=== PATIENT | male | born 1945 | race Caucasian/White ===

== ENCOUNTER 2017-03-28 16:20 | Emergency (ER) | payer OTHER ==
[~2017-03-28] VITALS: Wt 108.9 kg
[~2017-03-28 16:20] MED LIST: CLEOCIN150 MG PO; COUMADIN3 M1 PO; DEPO TESTOS200 MG/ML IM; DICYCLOMINE HCL10 MG PO; ESCITALOPRAM OX10 MG PO; FERROUS SULFATE65 MG PO; FLEXERIL10 MG PO; FLOMAX0.4 MG PO; HYDR12.5C PO; HYDROCORT CREAM1% T; KLOR-CON 1010 MEQ PO; MS CONTIN15 MG PO; NEURONTIN300 MG PO; NYAMYC100000 U/G TP; PERCOCET 325 MG1 TA2 PO; PERCOCET 325 MG1 TA7 PO; PRILOSEC20 MG PO; PROPAFENONE HY225 MG PO; RESTORIL15 MG PO; TETRACYCLINE H100 MG PO; UROCIT-K15 MEQ PO; VALIUM5 MG PO; VITAMIN D1000 IU PO
[2017-03-28] MEDS ORDERED: CLINDAMYCIN HC300 MG PO (16:44)
== END 2017-03-28 17:00 | disposition home or self-care (01) ==
LOC: ED 16:20
DX: L02.214 Cutaneous abscess of groin (principal); L30.4 Erythema intertrigo; Z88.0 Allergy status to penicillin; Z88.6 Allergy status to analgesic agent; Z79.899 Other long term (current) drug therapy

== ENCOUNTER 2017-04-06 14:36 | Inpatient (IN) | payer OTHER ==
[~2017-04-06] VITALS: Ht 188 cm; Wt 103.1 kg
--- NOTE | ~2017-04-06 | PR ---
[place], [place] PROGRESS NOTE NAME: LEE VERDUGO UNIT #: [id number] ROOM: [place] [address] DOCTOR: CATIA TREVINO MD BIRTHDATE: [birth year] DOS: 04/09/2017 REASON FOR VISIT: Atrial flutter. SUBJECTIVE: Mr. Malloy is more alert today. Denies any chest pain or shortness of breath. No dizziness or syncope. No orthopnea, no fever and chills, no cough. REVIEW OF SYSTEMS: Review of 8 systems negative except as described above. RHYTHM STRIPS: Patient in sinus rhythm. PHYSICAL EXAMINATION: VITAL SIGNS: Blood pressure 162/88, pulse rate 80, respiratory rate 20. GENERAL: Alert, comfortable, in no acute distress. HEENT: Pupils are round and equal. No jaundice. NECK: Supple. No distended neck veins. No carotid bruit. CHEST: Symmetrical, nontender. LUNGS: Clear to auscultation bilaterally. HEART: Regular rhythm, no S3. ABDOMEN: Benign, nontender. Bowel sounds normal. EXTREMITIES: Showed no edema. Distal pulses are palpable. SKIN: Warm and dry. No cyanosis, no clubbing. NEUROLOGIC: Patient is alert, oriented to place and person. No gross focal neurologic deficit. , patient is slightly slow to respond. MEDICATIONS AND ALLERGIES: Reviewed. IMPRESSION: 1. Paroxysmal atrial flutter with rapid ventricular rate, currently sinus rhythm, low CHADS2-VASc score of 1. We will hold an anticoagulation at this time due to altered mental status. 2. Hypertension, stable. 3. Status post pacemaker. 4. Tobacco use. Patient counseled to quit smoking. 5. Altered mental status. He is anticipating transfer to [facility]. 6. Continue current medications. 7. Blood pressures are persistently high increase of the blood pressure medications. There is no family at bedside at the time of my examination. [place], [place] PROGRESS NOTE NAME: LEE VERDUGO UNIT #: [id number] ROOM: [place] [address] DOCTOR: CATIA TREVINO MD BIRTHDATE: [birth year] CATIA TREVINO MD CM:YAYO [id number] CATIA TREVINO MD 04/09/172114 interface
--- NOTE | ~2017-04-06 | PR ---
[place], [place] PROGRESS NOTE NAME[facility]DUGO [id number] UNIT #: [id number] ROOM: [place] [address] DOCTOR: URIEL OROZCO,CATIA BIRTHDATE: [birth year] DOS: 04/08/2017 REASON FOR VISIT: Atrial fibrillation and flutter. HISTORY OF PRESENT ILLNESS: The patient is somewhat sleepy, but arousable. Denies any chest pain or shortness of breath. Family is at bedside. No palpitation, no dizziness and still has some "altered mental status." No nausea, vomiting. No fever, no chills. REVIEW OF SYSTEMS: Review of the 8 systems negative; however, limited due to patient's mental status. RHYTHM STRIPS: The patient was in atrial fibrillation with occasional rapid ventricular rate. PHYSICAL EXAMINATION: VITAL SIGNS: Blood pressure 136/86; respiratory rate 20; pulse was 136 in the morning, currently rates are 74. GENERAL: Alert, comfortable, slightly drowsy. HEENT: Pupils round. No jaundice. Tongue was moist and pharynx was clear. NECK: Supple, no distended neck veins, no carotid bruit. HEART: Regular rhythm, no S3. Grade 1/6 systolic murmur. ABDOMEN: Benign, nontender. Bowel sounds normal. EXTREMITIES: Showed no edema. Distal pulses are palpable. SKIN: Warm and dry. No cyanosis, no clubbing. NEUROLOGIC: The patient is alert and oriented to place and person. RECTAL: Deferred. GENITOURINARY: Deferred. MEDICATIONS AND ALLERGIES: Reviewed. IMPRESSION: 1. Atrial flutter with rapid ventricular rate, currently in sinus rhythm, wean off IV Cardizem and start him on p.o. beta-sanjay, metoprolol 25 mg 2 times a day, discontinue IV metoprolol. His 2D echo showed no intracardiac thrombus, the patient's CHADS2-VASc score is 1, we will hold on anticoagulation at this time. 2. Altered mental status. 3. Hypertension, stable. 4. Mild valvular heart disease, status post pacemaker insertion. RECOMMENDATIONS: 1. Continue home medications as above. 2. A 2D echo unremarkable with normal LV function, no intracardiac thrombus. 3. He is anticipating transfer to [facility] for further neurologic evaluation. 4. No further cardiac testing at this time and echo findings are discussed with his family who is at bedside. [place], [place] PROGRESS NOTE NAME: LEE VERDUGO UNIT #: [id number] ROOM: [place] [address] DOCTOR: CATIA TREVINO MD BIRTHDATE: [birth year] CATIA TREVINO MD CM:PNMARY [id number] CATIA TREVINO MD 04/09/17 1410 interface
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
[2017-04-06 14:36] VITALS: BP 159/97
[~2017-04-06 14:36] MED LIST changes: +CLINDAMYCIN HC300 MG PO
[2017-04-06 15:19] LABS: BASO # 0.1 10*3/uL (0.0-0.1); BASO % 0.9 % (0.0-1.0); EOS # 0.1 10*3/uL (0.0-0.4); LYMPH # 1.2 10*3/uL (1.3-4.4); LYMPH % 18.2 % (27.0-41.0); MEAN CELL VOLUME 100.8 fl (80.0-94.0); MEAN CORPUSCULAR HGB 32.9 pg (27.0-31.0); MEAN CORPUSCULAR HGB CONC 32.7 g/dl (33.0-37.0); MEAN PLATELET VOLUME 9.4 fl (9.6-12.3); MONO # 0.5 10*3/uL (0.1-1.0); MONO % 7.1 % (3.0-9.0); NEUT # 4.6 10*3/uL (2.3-7.9); NEUT % 71.6 % (47.0-73.0); PLATELET COUNT AUTOMATED 168 10*3/uL (130-400); RED BLOOD COUNT 4.86 10*6/uL (4.50-5.90); RED CELL DISTRI WIDTH 13.1 % (0-14.5); WHITE BLOOD COUNT 6.4 10*3/uL (4.8-10.8)
--- NOTE | 2017-04-06 15:29 | NUR ---
MOVED TO EXAM ROOM 1. PT NOW SHOWING A WIDE COMPLEX RHYTHM. IT APPEARS TO BE A PACED RHYTHM. REMAINS TACHYCARDIC WITH A RATE IN THE 120'S. BP REMAINS STABLE. AROUSES TO PAINFUL STIMULI. SANDHYA HEREDIA RN
[2017-04-06 15:37] LABS: ALBUMIN 3.7 gm/dl (3.1-4.5); ALKALINE PHOSPHATASE 103 U/L (45-117); BUN 15 mg/dl (7-24); CHLORIDE 108 mmol/L (98-107); CREATININE 0.88 mg/dL (0.70-1.30); LIPASE 73 U/L (73-393); MAGNESIUM 2.1 mg/dL (1.5-2.1); POTASSIUM 4.1 mmol/L (3.5-5.1); SGOT/AST 21 IU/L (3-35); SGPT/ALT 28 U/L (12-78); SODIUM 142 mmol/L (136-145)
[2017-04-06 15:38] LABS: TROPONIN I < 0.015 ng/ml (<0.045)
[2017-04-06 15:44] VITALS: BP 135/98
[2017-04-06 16:16] LABS: BILIRUBIN NEGATIVE (NEGATIVE); BLOOD NEGATIVE (NEGATIVE); CLARITY SL CLOUDY (CLEAR); COLOR YELLOW (YELLOW); GLUCOSE NEGATIVE (NEGATIVE); KETONE TRACE (NEGATIVE); LEUKO ESTERASE NEGATIVE (NEGATIVE); NITRITE NEGATIVE (NEGATIVE); UROBILINOGEN 0.2 E.U./dl (0.2-1.0)
[2017-04-06 16:24] LABS: BACTERIA TRACE; URINE AMPHETAMINES < 1000 (1000ng/ml); URINE BARBITURATES > 200 (200ng/ml); URINE BENZODIAZEPINES < 200 (200ng/ml); URINE CANNABINOIDS (THC) < 50 (50ng/ml); URINE COCAINE < 300 (300ng/ml); URINE METHADONE < 300 (300ng/ml); URINE OPIATES < 300 (300ng/ml)
[2017-04-06 16:26] LABS: URINE PHENCYCLIDINE < 25 (25ng/ml)
[2017-04-06 16:49] VITALS: BP 114/78
--- NOTE | 2017-04-06 17:20 | NUR ---
SEVERAL ATTEMPTS MADE FOR BLOOD GASES. RESPIRATORY AND RN ATTEMPTED. PT WAS RESTLESS AND BECOMING AGITATED. DR MARRERO HAS BEEN MADE AWARE OF THIS. SANDHYA HEREDIA RN
[2017-04-06 17:53] VITALS: BP 140/98
--- NOTE | 2017-04-06 18:29 | NUR ---
REMAINS RESTING QUIETLY WITH EYES CLOSED. RESPS ARE EASY AND NON LABORED. SANDHYA HEREDIA RN
[2017-04-06 20:00] VITALS: BP 150/98
[2017-04-06 21:30] VITALS: BP 150/98
--- NOTE | 2017-04-06 21:30 | NUR ---
A 71 YEAR OLD MALE admitted to ICCU, under the services of AMMON Davis DO with a diagnosis of METABOLIC ENCEPHALOPATHY. Chief complaint is ALTERED MENTAL STATUS AT HOME, . Patient arrived via stretcher from ER. Monitor applied. Initial assessment completed. Vital signs taken and recorded. AMMON DAVIS DO notified of admission to the unit. Orders received. See assessment for past medical history, medications and allergies. Patient and/or family oriented to unit. [facility] ICCU visitation policy reviewed. Clothing/patient valuable form completed. JESENIA JOHN
[2017-04-06 22:24] LABS: ABG BASE EXCESS 0.9 mmol/L (-2.0-2.0); ABG HCO3 24.7 mmol/l (22-26); ABG O2 SATURATION 97.3 % (95-97); ARTERIAL BLOOD GAS PCO2 37.8 mmHg (35-45); ARTERIAL BLOOD GAS PH 7.429 (7.35-7.45); ARTERIAL BLOOD GAS PO2 84.6 mmHg (80-90)
--- NOTE | 2017-04-06 22:32 | NUR ---
2229 DR. BROWN NOTIFIED THAT PT DID NOT RECEIVE ONE TIME DOSE OF LOPRESSOR IV ORDERED TO BE GIVEN IN ER. VERIFIED THIS WITH PT RN FROM ER. DR. PARMAR NOTIFIED OF PT ELEVATED HR AND CONSULT PER ER. PT HR REMAINS 130. PT STATES HE IS IN "THE HOSPITAL" BUT KEEPS REPEATING THIS WHEN ASKED DAY OF WEEK ETC. UNABLE TO VERIFY HOME MEDS OR HOME PHARMACY WITH PT. NO FAMILY WITH PT ON ADMISSION.
--- NOTE | 2017-04-06 23:29 | NUR ---
2315 DR. PARMAR CALLED REGARDING PT CONT ELEVATED HR AND BP. ORDERS RECEIVED. RHYTHM IS PACED NOW AND 128. SEE CHART FOR STRIPS. 2330 CALLED -HOME MEDS VERIFIED.
[2017-04-06] MEDS ORDERED: LASIX20 MG PO (23:35)
--- NOTE | 2017-04-06 23:50 | NUR ---
2345 LOPRESSOR 5MG IV GIVEN PER ORDER. WILL CONT TO MONITOR. MONITOR REMAINS 127 AND PACED. PT HAS VERY REPETITIVE SPEECH PATTERNS. 2353 STATES " I HAVE TO PEE." USING URINAL.
[2017-04-07] VITALS: BP 134/102
--- NOTE | 2017-04-07 00:13 | NUR ---
HR REMAINS 128 AND PACED. BP 130/89
--- NOTE | 2017-04-07 02:16 | NUR ---
HR IS SINUS TACHY NOW AND 130. PT CONT TO TALK TO SELF.
[2017-04-07 03:42] VITALS: BP 152/92
--- NOTE | 2017-04-07 05:24 | NUR ---
INCONTINENT OF LARGE AMOUNT URINE. COMPLETE BED BATH GIVEN AND LINENS CHANGED. PT UNCOOPERATIVE DURING BATH. STATES "YOU'RE GETTING ME WET" REPEATEDLY.
--- NOTE | 2017-04-07 06:03 | NUR ---
RESTING IN BED ON LEFT SIDE WITH EYES CLOSED. APPEARS TO BE SLEEPING AT PRESENT. SIDE RAILS UP X'S 2. BED ALARM INTACT. IV FLUIDS CONT. MONITOR REMAINS ST IN THE 120'S. CONDITION GUARDED.
[2017-04-07 06:13] LABS: BASO # 0.1 10*3/uL (0.0-0.1); BASO % 0.6 % (0.0-1.0); EOS % 0.3 % (1.0-4.0); HEMATOCRIT 46.1 % (42.0-52.0); HEMOGLOBIN 15.5 g/dl (14.0-18.0); LYMPH # 1.2 10*3/uL (1.3-4.4); MEAN CELL VOLUME 100.2 fl (80.0-94.0); MEAN CORPUSCULAR HGB 33.7 pg (27.0-31.0); MEAN CORPUSCULAR HGB CONC 33.6 g/dl (33.0-37.0); MEAN PLATELET VOLUME 9.7 fl (9.6-12.3); MONO # 0.7 10*3/uL (0.1-1.0); MONO % 7.8 % (3.0-9.0); NEUT # 6.7 10*3/uL (2.3-7.9); NEUT % 77.1 % (47.0-73.0); PLATELET COUNT AUTOMATED 171 10*3/uL (130-400); RED CELL DISTRI WIDTH 13.1 % (0-14.5); WHITE BLOOD COUNT 8.7 10*3/uL (4.8-10.8)
[2017-04-07 06:19] LABS: BUN 12 mg/dl (7-24); CHLORIDE 113 mmol/L (98-107); CREATININE 0.73 mg/dL (0.70-1.30); POTASSIUM 3.9 mmol/L (3.5-5.1); SODIUM 145 mmol/L (136-145)
[2017-04-07 06:24] LABS: CHOLESTEROL 150 mg/dL (<200); FREE T4 1.14 ng/dl (0.76-1.46); HDL CHOLESTEROL 65 mg/dl (40-60); LDL CHOLESTEROL 72 mg/dL (9-159); PHOSPHOROUS 2.3 mg/dL (2.5-4.9); TRIGLYCERIDES 67 mg/dl (<150); VLDL CHOLESTEROL 13 mg/dL (6-40)
[2017-04-07 06:30] LABS: THYROID STIM HORMONE (HS) 0.205 uIU/ml (0.358-4.75)
[2017-04-07 07:54] LABS: VITAMIN D, 25-HYDROXY 31.7 ng/mL (30-100)
[2017-04-07 08:00] VITALS: BP 126/90
--- NOTE | 2017-04-07 08:18 | NUR ---
ACCESSED CHART FOR STATION USHER TO DOCUMENT THE ED DISCHARGE, ABG, CARDIAC MONITORING, IV START, AND O2 THERAPY SO PATIENT IS ABLE TO BE DISCHARGED OUT OF ED COMPUTER. PATIENT LEFT ED FLOOR AT 2038 FOR ADMISSION TO ICCU.
--- NOTE | 2017-04-07 10:37 | NUR ---
planner internship in to see patient to discuss discharge planning. Patient out of room to CT Scan at this time, will check back later this afternoon.
--- NOTE | 2017-04-07 10:51 | NUR ---
Called patients , Elizabeth Barnes, and discuss discharge plans. states patient was independent at home prior to admission. Stated he was a little "wobbly" on his feet but otherwise fine. He recently became very confused so feels she won't be able to take care of him until he clears up. She asked for a referral to be made to [facility] for rehabilitation. Contacted [facility] and faxed referral. Patient is [employer] and will require preauthorization. Waiting on acceptance and auth.
--- NOTE | 2017-04-07 10:54 | NUR ---
pt awake,alert, but not oriented, follows commands inappropiately, when asked to hold his arms up, he will not put them down, and keeps repeating 'hold up your arms' speech is repeative to what ever he hears, has excessive lip smacking and tongue movements,keeps both fists tightly clenched only opens eyes when asked, but does not make good eye contact, residents at bedside and aware, ct head/abd completed, 2 fluid boluses done, second iv started in rac, lawrence placed per policy
--- NOTE | 2017-04-07 10:57 | NUR ---
Supervisor [employer] in to talk to patient. Patient states lives at Home with . There are 2 story, but remains on main floor steps in the home. Physician: Mackenzie Wang/[place] [facility]: [facility] Home health services: yes, a nurse from [facility] every Monday Patient's level of ADLs: MINIMAL ASSIST Patient has working utilities: yes DME: Walker, wheelchair,cane, bsc, No home 02 Follow-up physician's appointment after d/c: will make Does patient want to access PORTAL?: no Discharge plan stated she would be unable to care for patient at this time if he remains to be confused. Would like to [facility]. ONUR LUNSFORD
[2017-04-07 12:00] VITALS: BP 140/94
--- NOTE | 2017-04-07 14:53 | NUR ---
LUMBAR PUNCTURE DONE BY RAD, PT TOLERATED PROCEDURE WELL
--- NOTE | 2017-04-07 15:26 | NUR ---
DR HAYES SERVICE NOTIFIED OF CONSULT
[2017-04-07 15:46] LABS: CSF RBC < 1000 /uL; CSF WBC 2 /uL
[2017-04-07 15:54] LABS: CSF TOTAL PROTEIN 79.8 mg/dL (15-45)
[2017-04-07 16:00] VITALS: BP 130/89
--- NOTE | 2017-04-07 16:05 | NUR ---
PHYSICAL THERAPY PAtient just completed lumbar puncture and is having difficulty with commands. Will attempt at a later date when more appropriate. Thank you for this referral. Sruthi Dorman,PT
[2017-04-07] MEDS ORDERED: LORAZEPAM1 MG PO (16:25)
[2017-04-07 16:50] LABS: CSF LYMPHOCYTES 51 % (40-80); CSF MONOCYTES 48 % (15-45)
[2017-04-07 16:51] LABS: CLARITY CLEAR; COLOR COLORLESS
[2017-04-07] MEDS ORDERED: LOPRESSOR5 MG/5 ML IV (17:35)
[2017-04-07 20:00] VITALS: BP 141/87
--- NOTE | 2017-04-07 20:00 | NUR ---
PT DOES NOT FOLLOW COMMANDS EASILY.
[2017-04-08] VITALS (8 sets, daily range): BP systolic 136–167; BP diastolic 54–99
--- NOTE | 2017-04-08 | NUR ---
DENIES ANY COMPLAINTS BUT CONTINUES TO BE INAPPROPRIATE.
--- NOTE | 2017-04-08 02:15 | NUR ---
MEDICATED WITH PO VICODIN ORDERED PER PT REQUEST FOR C/O PAIN AFTER FOUND TUGGING INTENSELY AT [facility].
--- NOTE | 2017-04-08 02:48 | NUR ---
DR FRYE NOTIFIED OF CONTINUED HR IN THE UPPER 140s AND BP OF 152/102 MANUALLY.
--- NOTE | 2017-04-08 02:56 | NUR ---
24 HR chart check completed.
--- NOTE | 2017-04-08 03:59 | NUR ---
DR FRYE NOTIFIED OF SLIGHT DECREASE OF HR TO 120s DURING BOLUS AND THEN BACK UP TO 149 AND HOLDING STEADY. NEW ORDERS RECEIVED.
--- NOTE | 2017-04-08 04:46 | NUR ---
HR IS BREAKING INTO THE 110s-120s DURING 2ND BOLUS, BUT DOES CONTINUE TO FLUCTUATE.
[2017-04-08 05:51] LABS: BASO # 0.1 10*3/uL (0.0-0.1); BASO % 0.8 % (0.0-1.0); EOS % 0.2 % (1.0-4.0); HEMATOCRIT 45.4 % (42.0-52.0); HEMOGLOBIN 15.2 g/dl (14.0-18.0); LYMPH # 1.1 10*3/uL (1.3-4.4); LYMPH % 10.7 % (27.0-41.0); MEAN CELL VOLUME 100.2 fl (80.0-94.0); MEAN CORPUSCULAR HGB 33.6 pg (27.0-31.0); MEAN CORPUSCULAR HGB CONC 33.5 g/dl (33.0-37.0); MEAN PLATELET VOLUME 9.7 fl (9.6-12.3); MONO # 0.8 10*3/uL (0.1-1.0); MONO % 7.8 % (3.0-9.0); NEUT # 8.5 10*3/uL (2.3-7.9); NEUT % 80.2 % (47.0-73.0); PLATELET COUNT AUTOMATED 153 10*3/uL (130-400); RED BLOOD COUNT 4.53 10*6/uL (4.50-5.90); RED CELL DISTRI WIDTH 13.2 % (0-14.5); WHITE BLOOD COUNT 10.6 10*3/uL (4.8-10.8)
[2017-04-08 06:09] LABS: ALBUMIN 2.9 gm/dl (3.1-4.5); ALKALINE PHOSPHATASE 86 U/L (45-117); BUN 10 mg/dl (7-24); CHLORIDE 111 mmol/L (98-107); CREATININE 0.61 mg/dL (0.70-1.30); POTASSIUM 3.4 mmol/L (3.5-5.1); SGOT/AST 23 IU/L (3-35); SGPT/ALT 22 U/L (12-78); SODIUM 145 mmol/L (136-145)
--- NOTE | 2017-04-08 10:29 | NUR ---
CARDIOLOGY UPDATED ON HR, CARDIZEM BOLUS OF 15 AND DRIP AT 5 STARTED
--- NOTE | 2017-04-08 16:00 | NUR ---
DR BOSS UPDATED THAT [facility] DOES NOT KNOW WHEN A BED WILL BE AVAILABLE
--- NOTE | 2017-04-08 18:36 | NUR ---
DR BARKLEY UPDATED THAT PT WILL NOT EAT AND HAS NOT EATEN A GOOD MEAL ALL DAY
--- NOTE | 2017-04-08 20:00 | NUR ---
PT INCONTINENT IN CHAIR. BACK TO BED AND BATHED.
[2017-04-09] VITALS: BP 161/77
--- NOTE | 2017-04-09 | NUR ---
INCONTINENT. CLEANED AND ASKED, "I'M IN THE HOPSITAL RIGHT".
[2017-04-09 04:00] VITALS: BP 155/74
--- NOTE | 2017-04-09 04:00 | NUR ---
Patient resting quietly with no c/o discomfort. Respirations easy and regular. Vital signs stable. No overt distress. DAVID NOYOLA
--- NOTE | 2017-04-09 06:05 | NUR ---
24 HR chart check completed.
[2017-04-09 06:32] LABS: BASO # 0.1 10*3/uL (0.0-0.1); BASO % 0.7 % (0.0-1.0); EOS # 0.1 10*3/uL (0.0-0.4); EOS % 1.3 % (1.0-4.0); HEMATOCRIT 44.3 % (42.0-52.0); HEMOGLOBIN 15.1 g/dl (14.0-18.0); LYMPH # 1.5 10*3/uL (1.3-4.4); LYMPH % 15.3 % (27.0-41.0); MEAN CELL VOLUME 99.1 fl (80.0-94.0); MEAN CORPUSCULAR HGB 33.8 pg (27.0-31.0); MEAN CORPUSCULAR HGB CONC 34.1 g/dl (33.0-37.0); MEAN PLATELET VOLUME 9.9 fl (9.6-12.3); MONO # 0.9 10*3/uL (0.1-1.0); MONO % 8.9 % (3.0-9.0); NEUT # 7.4 10*3/uL (2.3-7.9); NEUT % 73.5 % (47.0-73.0); PLATELET COUNT AUTOMATED 152 10*3/uL (130-400); RED BLOOD COUNT 4.47 10*6/uL (4.50-5.90); WHITE BLOOD COUNT 10.1 10*3/uL (4.8-10.8)
[2017-04-09 06:49] LABS: ALBUMIN 3.1 gm/dl (3.1-4.5); ALKALINE PHOSPHATASE 77 U/L (45-117); BUN 17 mg/dl (7-24); CHLORIDE 111 mmol/L (98-107); CREATININE 0.64 mg/dL (0.70-1.30); MAGNESIUM 2.1 mg/dL (1.5-2.1); PHOSPHOROUS 2.2 mg/dL (2.5-4.9); POTASSIUM 3.4 mmol/L (3.5-5.1); SGOT/AST 23 IU/L (3-35); SGPT/ALT 21 U/L (12-78); SODIUM 144 mmol/L (136-145); TOTAL PROTEIN 6.2 gm/dL (6.4-8.2)
[2017-04-09 08:00] VITALS: BP 170/88
--- NOTE | 2017-04-09 09:30 | NUR ---
DR BOSS UPDATED OM NEWLY DEVELOPED DIARRHEA-GELATINOUS CONSISTENCY-NO ORDERS RECIEVED FOR ANY STOOL LABS
[2017-04-09 12:00] VITALS: BP 158/86
[2017-04-09 16:00] VITALS: BP 147/73
[2017-04-09 17:09] LABS: ACID FAST SMEAR Negative (.)
--- NOTE | 2017-04-09 17:47 | NUR ---
CALL TO RESIDENT FOR PTS CONTINUED VERY LOOSE STOOLS, NO ANSWER
--- NOTE | 2017-04-09 17:54 | NUR ---
ABLE TO REACH RESIDENT ON THE OTHER LINE, UPDATED ON PTS CONTINUED LOOSE STOOLS, ORDERS RECIEVED
--- NOTE | 2017-04-09 18:21 | NUR ---
MEDS FOR DIARRHEA GIVEN
[2017-04-09 20:00] VITALS: BP 128/62
--- NOTE | 2017-04-09 21:05 | NUR ---
[facility] CALLED WITH A BED FOR NEURO ICU, BED #780. CLARIFIED TRANSFER WITH DR SHARMA PRIOR TO TRANSFER. REPORT GIVEN TO POOL IN NEURO ICU. FOSTER CALLED AND NOTIFIED OF TRANSFER AND TO WHAT HOSPITAL AND ROOM. [facility] CALLED AND HERE, OUT WITH PT AT 4367. ALL PAPERWORK AND BELONGINGS SENT.
[2017-04-10 15:05] LABS: CSF VDRL 006445 Non Reactive (Non Rea:<1:1)
[2017-04-12 20:09] LABS: HSV-2 DNA Negative (Negative)
== END 2017-04-09 21:05 | disposition short-term general hospital (02) | DRG 97 ==
LOC: ED 14:36 → EDHOLD 18:35 → ICCU 19:44
PROVIDERS: Emergency Medicine; Internal Medicine; Nurse Practitioner; Student in an Organized Health Care Education/Training Program; ADMIT Internal Medicine
PROC: 009U3ZX Drainage of Spinal Canal, Percutaneous Approach, Diagnostic (ICD-10-PCS; principal; 2017-04-07)
PROC: 4B02XSZ Measurement of Cardiac Pacemaker, External Approach (ICD-10-PCS; principal; 2017-04-07)
PROC: B01B1ZZ Fluoroscopy of Spinal Cord using Low Osmolar Contrast (ICD-10-PCS; principal; 2017-04-07)
DX: A86 Unspecified viral encephalitis (principal); G93.41 Metabolic encephalopathy; J96.00 Acute respiratory failure, unspecified whether with hypoxia or hypercapnia; R65.10 Systemic inflammatory response syndrome (SIRS) of non-infectious origin without acute organ dysfunction; D68.59 Other primary thrombophilia; E87.8 Other disorders of electrolyte and fluid balance, not elsewhere classified; I11.9 Hypertensive heart disease without heart failure; I48.92 Unspecified atrial flutter; F10.239 Alcohol dependence with withdrawal, unspecified; G62.9 Polyneuropathy, unspecified; I48.91 Unspecified atrial fibrillation; R73.9 Hyperglycemia, unspecified; N40.0 Benign prostatic hyperplasia without lower urinary tract symptoms; F32.9 Major depressive disorder, single episode, unspecified; E87.6 Hypokalemia; E83.39 Other disorders of phosphorus metabolism; D75.89 Other specified diseases of blood and blood-forming organs; F41.9 Anxiety disorder, unspecified; Z85.46 Personal history of malignant neoplasm of prostate; Z82.49 Family history of ischemic heart disease and other diseases of the circulatory system; Z80.3 Family history of malignant neoplasm of breast; Z88.6 Allergy status to analgesic agent; Z95.0 Presence of cardiac pacemaker; Z72.0 Tobacco use; Z88.0 Allergy status to penicillin; Z79.899 Other long term (current) drug therapy

== ENCOUNTER → 2017-05-01 | Outpatient (CLI) | payer OTHER ==
[~2017-05-01] MED LIST changes: +LASIX20 MG PO; +LOPRESSOR5 MG/5 ML IV; +LORAZEPAM1 MG PO
[2017-05-01 09:35] LABS: BUN 11 mg/dl (7-24); CHLORIDE 99 mmol/L (98-107); CREATININE 0.98 mg/dL (0.70-1.30); MAGNESIUM 2.3 mg/dL (1.5-2.1); POTASSIUM 4.6 mmol/L (3.5-5.1); SODIUM 140 mmol/L (136-145)
[2017-05-01 09:50] LABS: DIGOXIN 1.04 ng/ml (0.8-2.0)
== END | disposition home or self-care (01) ==
LOC: LAB 08:35
PROVIDERS: Internal Medicine
DX: I48.91 Unspecified atrial fibrillation (principal); R60.9 Edema, unspecified

== ENCOUNTER → 2017-05-02 | Outpatient (CLI) | payer OTHER | END | disposition home or self-care (01) | LOC: US 10:59 | DX: N28.1 Cyst of kidney, acquired (principal); N20.0 Calculus of kidney ==

== ENCOUNTER 2017-11-24 09:13 | Emergency (ER) | payer OTHER ==
[~2017-11-24] VITALS: Ht 187.9 cm; Wt 108.9 kg
== END 2017-11-24 11:08 | disposition left against medical advice (07) ==
LOC: ED 09:13
DX: T82.110A Breakdown (mechanical) of cardiac electrode, initial encounter (principal); R07.81 Pleurodynia; I48.91 Unspecified atrial fibrillation; F17.200 Nicotine dependence, unspecified, uncomplicated; E78.00 Pure hypercholesterolemia, unspecified; Z95.0 Presence of cardiac pacemaker; Z85.46 Personal history of malignant neoplasm of prostate; Z98.890 Other specified postprocedural states; Z88.0 Allergy status to penicillin; Z88.6 Allergy status to analgesic agent; W19.XXXA Unspecified fall, initial encounter; Y93.89 Activity, other specified; Y92.89 Other specified places as the place of occurrence of the external cause; Y99.9 Unspecified external cause status

== ENCOUNTER → 2018-01-25 | Day surgery (SDC) | payer OTHER ==
[~2018-01-25] VITALS: Ht 195.5 cm; Wt 105.7 kg
[~2018-01-25] MED LIST changes: +AMIODARONE HCL100 M1 PO; +DEXILANT60 M1 PO; +GRALISE300 M1 PO; +K-TAB20 MEQ PO; +LASIX40 MG PO; +PERCOCET 10-321 EACH PO; +STIOLTO RESPIMAT4 GM INH; +VENTOLIN 02.5 MG/3 M INH; +[UNRECOGNIZED DRUG - OTHER] PO
--- NOTE | ~2018-01-25 | PROC NOTE ---
[place], [place] PROCEDURE NOTE NAME: LEE VERDUGO UNIT #: [id number] ROOM: DOCTOR: TONYA BRUMFIELD MD,CHRISTIAN BIRTHDATE: [birth year] DOS: 01/25/2018 PREOPERATIVE DIAGNOSES: Severe nonresolving cough. The patient with maximal medical management of the patient, nonresolving. POSTOPERATIVE DIAGNOSES: Severe impacted mucus. The patient with a strong consideration of ongoing acute tracheobronchitis. COMPLICATION: None. PROCEDURE DESCRIPTION: Informed consent was obtained for the patient. The patient was brought to the OR, placed in the supine position. Conscious sedation was administered. The bronchoscope advanced to the airway and into laryngeal area. Epiglottis and vocal cords were seen. The bronchoscope was advanced to the vocal cord and tracheal lumen shows moderate amount of thick mucopurulent secretion mixture suctioned out at evette level. The patient noted similar secretion, patient filling the endobronchial tree bilaterally. All the secretion and mucus plug removed from right upper, right middle, right lower, left upper, lingula, left lower lobe and main bronchi. The procedure was well tolerated by the patient without any complication. Postoperative findings were discussed with the patient's spouse in detail after completion of procedure. No change in treatment will be needed at this time, culture will be carefully monitored for this patient to make any other additional changes in treatment accordingly. CHRISTIAN CASTANEDA MD CM:PROCNOTE:PROCEDURE NOTE 1204 1314 CHRISTIAN BRUMFIELD MD
[2018-01-25 08:19] VITALS: BP 106/42
[2018-01-25 08:45] VITALS: BP 121/83
[2018-01-25 09:00] VITALS: BP 120/62
[2018-01-25 09:12] VITALS: BP 125/60
[2018-01-26 16:09] LABS: ACID FAST SPEC PROCESSING Concentration (.)
== END | disposition home or self-care (01) ==
LOC: SDC 01-24 10:15
PROVIDERS: Internal Medicine Critical Care Medicine
DX: J40 Bronchitis, not specified as acute or chronic (principal); J44.9 Chronic obstructive pulmonary disease, unspecified; I10 Essential (primary) hypertension; G47.11 Idiopathic hypersomnia with long sleep time; Z87.891 Personal history of nicotine dependence; Z79.899 Other long term (current) drug therapy; Z95.0 Presence of cardiac pacemaker; Z85.46 Personal history of malignant neoplasm of prostate; Z98.890 Other specified postprocedural states; Z88.0 Allergy status to penicillin; Z88.8 Allergy status to other drugs, medicaments and biological substances; Z87.442 Personal history of urinary calculi; Z90.49 Acquired absence of other specified parts of digestive tract

== ENCOUNTER 2018-07-27 19:30 | Emergency (ER) | payer OTHER ==
[~2018-07-27] VITALS: Ht 195.5 cm; Wt 111.1 kg
--- NOTE | ~2018-07-27 | EKG ---
[place], [place] ELECTROCARDIOGRAM REPORT NAME: LEE VERDUGO UNIT #: [id number] ROOM: DOCTOR: EPIPHANY DRAFT REPORT BIRTHDATE: [birth year] [facility] Test Date: 2018-07-27 Test Time: 20:05:35 Pat Name: LEE VERDUGO Department: Room: Gender: Manager Orange: Shree Muller : 1945 Requested By: MOHINI LORA PA-C Order Number: [id number] Reading MD: Karime Venegas MD Measurements Intervals [place] Rate: 86 P: 47 [place]: 168 QRS: 25 QRSD: 94 T: 27 QT: 380 QTc: 455 Interpretive Statements Sinus rhythm Normal ECG Electronically Signed On 07-28-2018 7:12:24 PST by Karime Venegas MD CM:EKGRPT:ELECTROCARDIOGRAM REPORT 04 1 MOHINI LORA PA-C EPIPHANY DRAFT REPORT MOHINI LORA PA-C
[2018-07-27 20:05] LABS: HEMATOCRIT 47.2 % (42.0-52.0); HEMOGLOBIN 15.3 g/dl (14.0-18.0); MEAN CELL VOLUME 105.8 fl (80.0-94.0); MEAN CORPUSCULAR HGB 34.3 pg (27.0-31.0); MEAN CORPUSCULAR HGB CONC 32.4 g/dl (33.0-37.0); MEAN PLATELET VOLUME 8.3 fl (9.6-12.3); PLATELET COUNT AUTOMATED 185 10*3/uL (130-400); RED BLOOD COUNT 4.46 10*6/uL (4.50-5.90); RED CELL DISTRI WIDTH 17.1 % (0-14.5); WHITE BLOOD COUNT 13.2 10*3/uL (4.8-10.8)
[2018-07-27 20:17] LABS: INTERNATIONAL NORM RATIO 0.9 (2.0-3.5)
[2018-07-27 20:22] LABS: PLATELET SUFFICIENCY NORMAL (NORMAL); TOTAL CELLS COUNTED 100 #CELLS
[2018-07-27 20:23] LABS: POLYCHROMASIA SLIGHT
[2018-07-27 20:25] LABS: ALBUMIN 3.5 gm/dl (3.1-4.5); ALKALINE PHOSPHATASE 81 U/L (45-117); BUN 16 mg/dl (7-24); CHLORIDE 107 mmol/L (98-107); LIPASE 54 U/L (73-393); POTASSIUM 4.4 mmol/L (3.5-5.1); SGOT/AST 20 IU/L (3-35); SGPT/ALT 38 U/L (12-78); SODIUM 141 mmol/L (136-145); TOTAL PROTEIN 6.8 gm/dL (6.4-8.2)
[2018-07-27 20:26] LABS: TROPONIN I < 0.015 ng/ml (<0.045)
[2018-07-27 20:49] LABS: BILIRUBIN NEGATIVE (NEGATIVE); BLOOD NEGATIVE (NEGATIVE); CLARITY SL CLOUDY (CLEAR); COLOR YELLOW (YELLOW); GLUCOSE TRACE (NEGATIVE); KETONE TRACE (NEGATIVE); LEUKO ESTERASE 1+ (NEGATIVE); NITRITE NEGATIVE (NEGATIVE)
[2018-07-27 20:56] LABS: BACTERIA 1+; RBC 0-2 rbc/hpf (0-2); WBC 41-50 wbc/hpf (0-5)
== END 2018-07-27 23:38 | disposition home or self-care (01) ==
LOC: ED 19:30
PROVIDERS: Physician Assistant
DX: K59.00 Constipation, unspecified (principal); M54.6 Pain in thoracic spine; K21.9 Gastro-esophageal reflux disease without esophagitis; F17.200 Nicotine dependence, unspecified, uncomplicated; Z88.0 Allergy status to penicillin; Z88.6 Allergy status to analgesic agent; Z88.2 Allergy status to sulfonamides; Z79.2 Long term (current) use of antibiotics; Z79.899 Other long term (current) drug therapy

== ENCOUNTER 2018-08-18 10:55 | Emergency (ER) | payer OTHER ==
[~2018-08-18] VITALS: Ht 185.4 cm; Wt 111.1 kg
[2018-08-18 12:01] LABS: BASO % 0.4 % (0.0-1.0); EOS # 0.3 10*3/uL (0.0-0.4); EOS % 3.5 % (1.0-4.0); HEMATOCRIT 44.9 % (42.0-52.0); HEMOGLOBIN 14.4 g/dl (14.0-18.0); LYMPH % 13.2 % (27.0-41.0); MEAN CELL VOLUME 103.9 fl (80.0-94.0); MEAN CORPUSCULAR HGB 33.3 pg (27.0-31.0); MEAN CORPUSCULAR HGB CONC 32.1 g/dl (33.0-37.0); MEAN PLATELET VOLUME 8.5 fl (9.6-12.3); MONO # 0.6 10*3/uL (0.1-1.0); MONO % 8.1 % (3.0-9.0); NEUT # 5.5 10*3/uL (2.3-7.9); NEUT % 74.5 % (47.0-73.0); PLATELET COUNT AUTOMATED 228 10*3/uL (130-400); RED BLOOD COUNT 4.32 10*6/uL (4.50-5.90); RED CELL DISTRI WIDTH 15.9 % (0-14.5); WHITE BLOOD COUNT 7.4 10*3/uL (4.8-10.8)
[2018-08-18 12:17] LABS: ALBUMIN 3.4 gm/dl (3.1-4.5); ALKALINE PHOSPHATASE 127 U/L (45-117); BUN 11 mg/dl (7-24); CHLORIDE 106 mmol/L (98-107); CREATININE 1.15 mg/dL (0.70-1.30); SGOT/AST 15 IU/L (3-35); SGPT/ALT 22 U/L (12-78); SODIUM 139 mmol/L (136-145); TOTAL PROTEIN 6.9 gm/dL (6.4-8.2)
[2018-08-18] MEDS ORDERED: CLINDAMYCIN HC300 MG PO (12:37)
[2018-08-18] MEDS ORDERED: Bactroban Oint22 GM T (12:37)
[2018-08-18] MEDS ORDERED: AKTOB 5 ML5 ML OPH (12:38)
== END 2018-08-18 13:24 | disposition home or self-care (01) ==
LOC: ED 10:55
PROVIDERS: Emergency Medicine
DX: H10.33 Unspecified acute conjunctivitis, bilateral (principal); L30.9 Dermatitis, unspecified; L01.00 Impetigo, unspecified; L98.9 Disorder of the skin and subcutaneous tissue, unspecified; M79.89 Other specified soft tissue disorders; L03.90 Cellulitis, unspecified; R60.0 Localized edema; I48.91 Unspecified atrial fibrillation; G62.9 Polyneuropathy, unspecified; Z88.0 Allergy status to penicillin; Z88.6 Allergy status to analgesic agent; Z88.2 Allergy status to sulfonamides; Z79.899 Other long term (current) drug therapy; Z95.0 Presence of cardiac pacemaker

== ENCOUNTER → 2019-04-30 | Outpatient (CLI) | payer OTHER ==
[~2019-04-30] MED LIST changes: +AKTOB 5 ML5 ML OPH; +Bactroban Oint22 GM T; +MEDROL DOSEPAK4 MG PO
[2019-04-30 09:14] LABS: BASO # 0.1 10*3/uL (0.0-0.1); BASO % 1.2 % (0.0-1.0); EOS # 0.4 10*3/uL (0.0-0.4); EOS % 5.7 % (1.0-4.0); HEMATOCRIT 43.2 % (42.0-52.0); HEMOGLOBIN 13.9 g/dl (14.0-18.0); LYMPH # 1.4 10*3/uL (1.3-4.4); LYMPH % 21.3 % (27.0-41.0); MEAN CELL VOLUME 102.4 fl (80.0-94.0); MEAN CORPUSCULAR HGB CONC 32.2 g/dl (33.0-37.0); MEAN PLATELET VOLUME 8.9 fl (9.6-12.3); MONO # 0.5 10*3/uL (0.1-1.0); MONO % 7.8 % (3.0-9.0); NEUT # 4.2 10*3/uL (2.3-7.9); NEUT % 63.8 % (47.0-73.0); PLATELET COUNT AUTOMATED 220 10*3/uL (130-400); RED BLOOD COUNT 4.22 10*6/uL (4.50-5.90); WHITE BLOOD COUNT 6.5 10*3/uL (4.8-10.8)
[2019-04-30 09:15] LABS: MEAN CORPUSCULAR HGB 32.9 pg (27.0-31.0)
[2019-04-30 09:43] LABS: ALBUMIN 3.7 gm/dl (3.1-4.5); BUN 15 mg/dl (7-24); CHLORIDE 105 mmol/L (98-107); CHOLESTEROL 169 mg/dL (<200); CREATININE 1.32 mg/dL (0.70-1.30); POTASSIUM 4.1 mmol/L (3.5-5.1); SGOT/AST 21 IU/L (3-35); SGPT/ALT 26 U/L (12-78); SODIUM 140 mmol/L (136-145); TOTAL PROTEIN 7.1 gm/dL (6.4-8.2); TRIGLYCERIDES 54 mg/dl (<150); VLDL CHOLESTEROL 11 mg/dL (6-40)
[2019-04-30 09:53] LABS: ALKALINE PHOSPHATASE 146 U/L (45-117); HDL CHOLESTEROL 90 mg/dl (40-60); LDL CHOLESTEROL 68 mg/dL (9-159)
== END | disposition home or self-care (01) ==
LOC: LAB 08:46
PROVIDERS: Internal Medicine
DX: N40.0 Benign prostatic hyperplasia without lower urinary tract symptoms (principal); I11.0 Hypertensive heart disease with heart failure; I50.9 Heart failure, unspecified; J44.9 Chronic obstructive pulmonary disease, unspecified; E55.9 Vitamin D deficiency, unspecified

== ENCOUNTER → 2019-05-06 | Outpatient (CLI) | payer OTHER ==
[2019-05-06 11:49] LABS: BASO # 0.1 10*3/uL (0.0-0.1); BASO % 1.1 % (0.0-1.0); EOS # 0.1 10*3/uL (0.0-0.4); EOS % 2.2 % (1.0-4.0); HEMATOCRIT 41.1 % (42.0-52.0); LYMPH # 1.1 10*3/uL (1.3-4.4); LYMPH % 19.6 % (27.0-41.0); MEAN CELL VOLUME 103.5 fl (80.0-94.0); MEAN CORPUSCULAR HGB 32.7 pg (27.0-31.0); MEAN CORPUSCULAR HGB CONC 31.6 g/dl (33.0-37.0); MEAN PLATELET VOLUME 9.2 fl (9.6-12.3); MONO # 0.6 10*3/uL (0.1-1.0); MONO % 11.8 % (3.0-9.0); NEUT # 3.5 10*3/uL (2.3-7.9); NEUT % 65.1 % (47.0-73.0); PLATELET COUNT AUTOMATED 219 10*3/uL (130-400); RED BLOOD COUNT 3.97 10*6/uL (4.50-5.90); RED CELL DISTRI WIDTH 14.6 % (0-14.5); WHITE BLOOD COUNT 5.4 10*3/uL (4.8-10.8)
[2019-05-06 12:44] LABS: ALBUMIN 3.6 gm/dl (3.1-4.5); CREATININE 1.47 mg/dL (0.70-1.30); TOTAL PROTEIN 6.9 gm/dL (6.4-8.2)
[2019-05-06 12:51] LABS: THYROID STIM HORMONE (HS) 1.23 uIU/ml (0.358-4.75)
== END | disposition home or self-care (01) ==
LOC: LAB 11:07
PROVIDERS: Nurse Practitioner Family
DX: L28.2 Other prurigo (principal); I48.91 Unspecified atrial fibrillation

== ENCOUNTER → 2019-05-10 | Outpatient (CLI) | payer OTHER | END | disposition home or self-care (01) | LOC: LAB 09:31 | DX: E29.1 Testicular hypofunction (principal) ==

== ENCOUNTER → 2019-05-20 | Outpatient (CLI) | payer OTHER ==
[2019-05-20 11:46] LABS: BASO # 0.1 10*3/uL (0.0-0.1); BASO % 1.2 % (0.0-1.0); EOS # 0.2 10*3/uL (0.0-0.4); EOS % 2.4 % (1.0-4.0); HEMOGLOBIN 15.3 g/dl (14.0-18.0); LYMPH # 1.7 10*3/uL (1.3-4.4); LYMPH % 21.5 % (27.0-41.0); MEAN CORPUSCULAR HGB 31.9 pg (27.0-31.0); MEAN CORPUSCULAR HGB CONC 31.9 g/dl (33.0-37.0); MEAN PLATELET VOLUME 8.7 fl (9.6-12.3); MONO # 0.7 10*3/uL (0.1-1.0); MONO % 8.4 % (3.0-9.0); NEUT # 5.1 10*3/uL (2.3-7.9); PLATELET COUNT AUTOMATED 334 10*3/uL (130-400); RED CELL DISTRI WIDTH 13.9 % (0-14.5); WHITE BLOOD COUNT 7.8 10*3/uL (4.8-10.8)
[2019-05-20 12:24] LABS: ALBUMIN 3.6 gm/dl (3.1-4.5); ALKALINE PHOSPHATASE 143 U/L (45-117); BUN 19 mg/dl (7-24); CHLORIDE 102 mmol/L (98-107); CHOLESTEROL 181 mg/dL (<200); CREATININE 1.15 mg/dL (0.70-1.30); POTASSIUM 3.9 mmol/L (3.5-5.1); SGOT/AST 12 IU/L (3-35); SGPT/ALT 19 U/L (12-78); SODIUM 138 mmol/L (136-145); TOTAL PROTEIN 7.8 gm/dL (6.4-8.2); TRIGLYCERIDES 72 mg/dl (<150); VLDL CHOLESTEROL 14 mg/dL (6-40)
[2019-05-20 12:33] LABS: HDL CHOLESTEROL 65 mg/dl (40-60); LDL CHOLESTEROL 102 mg/dL (9-159); THYROID STIM HORMONE (HS) 0.948 uIU/ml (0.358-4.75)
== END | disposition home or self-care (01) ==
LOC: LAB 11:05
PROVIDERS: Internal Medicine
DX: E55.9 Vitamin D deficiency, unspecified (principal); I11.0 Hypertensive heart disease with heart failure; I50.9 Heart failure, unspecified; J44.9 Chronic obstructive pulmonary disease, unspecified; N40.0 Benign prostatic hyperplasia without lower urinary tract symptoms

== ENCOUNTER → 2019-06-04 | Outpatient (CLI) | payer OTHER ==
[2019-06-04 11:58] LABS: BILIRUBIN NEGATIVE (NEGATIVE); BLOOD TRACE-INTACT (NEGATIVE); CLARITY SL CLOUDY (CLEAR); COLOR YELLOW (YELLOW); GLUCOSE NEGATIVE (NEGATIVE); KETONE TRACE (NEGATIVE); LEUKO ESTERASE 2+ (NEGATIVE); NITRITE POSITIVE (NEGATIVE); SPECIFIC GRAVITY 1.015 (1.005-1.030)
[2019-06-04 12:13] LABS: BACTERIA 2+; WBC TNTC wbc/hpf (0-5)
== END | disposition home or self-care (01) ==
LOC: LAB 11:22
PROVIDERS: Internal Medicine
DX: N39.0 Urinary tract infection, site not specified (principal)

== ENCOUNTER → 2019-07-18 | Outpatient (CLI) | payer OTHER ==
[2019-07-18 10:21] LABS: BILIRUBIN NEGATIVE (NEGATIVE); BLOOD 1+ (NEGATIVE); CLARITY SL CLOUDY (CLEAR); COLOR YELLOW (YELLOW); GLUCOSE NEGATIVE (NEGATIVE); KETONE TRACE (NEGATIVE); LEUKO ESTERASE 3+ (NEGATIVE); NITRITE POSITIVE (NEGATIVE)
[2019-07-18 10:33] LABS: WBC TNTC wbc/hpf (0-5)
== END | disposition home or self-care (01) ==
LOC: LAB 09:53
PROVIDERS: Internal Medicine
DX: N39.0 Urinary tract infection, site not specified (principal)

== ENCOUNTER → 2019-10-01 | Outpatient (CLI) | payer OTHER ==
[2019-10-01 10:12] LABS: HEMATOCRIT 47.3 % (42.0-52.0); HEMOGLOBIN 14.8 g/dl (14.0-18.0); MEAN CELL VOLUME 108.2 fl (80.0-94.0); MEAN CORPUSCULAR HGB 33.9 pg (27.0-31.0); MEAN CORPUSCULAR HGB CONC 31.3 g/dl (33.0-37.0); MEAN PLATELET VOLUME 8.4 fl (9.6-12.3); PLATELET COUNT AUTOMATED 214 10*3/uL (130-400); RED BLOOD COUNT 4.37 10*6/uL (4.50-5.90); RED CELL DISTRI WIDTH 15.9 % (0-14.5); WHITE BLOOD COUNT 7.6 10*3/uL (4.8-10.8)
[2019-10-01 10:46] LABS: BUN 16 mg/dl (7-24); CHLORIDE 106 mmol/L (98-107); POTASSIUM 4.1 mmol/L (3.5-5.1); SODIUM 140 mmol/L (136-145)
[2019-10-01 10:48] LABS: CREATININE 1.15 mg/dL (0.70-1.30); PHOSPHOROUS 2.5 mg/dL (2.5-4.9)
[2019-10-01 10:50] LABS: BASOPHILS 3 % (0-1); PLATELET SUFFICIENCY NORMAL (NORMAL); TOTAL CELLS COUNTED 100 #CELLS
[2019-10-01 11:49] LABS: PTH INTACT 137.9 pg/mL (18.5-88.0)
[2019-10-01 13:04] LABS: BILIRUBIN NEGATIVE (NEGATIVE); BLOOD 3+ (NEGATIVE); CLARITY CLOUDY (CLEAR); COLOR YELLOW (YELLOW); GLUCOSE NEGATIVE (NEGATIVE); KETONE NEGATIVE (NEGATIVE); NITRITE POSITIVE (NEGATIVE); PH 8.5 (5.0-9.0); SPECIFIC GRAVITY 1.015 (1.005-1.030); UROBILINOGEN 0.2 E.U./dl (0.2-1.0)
[2019-10-01 13:05] LABS: BACTERIA 3+; LEUKO ESTERASE 3+ (NEGATIVE)
[2019-10-01 13:06] LABS: RBC 41-50 rbc/hpf (0-2); TRIP PHOS CRYSTALS TRACE; WBC 51-100 wbc/hpf (0-5)
[2019-10-02 11:10] LABS: CREATININE,URINE 81.3 mg/dL (Not Estab.)
== END | disposition home or self-care (01) ==
LOC: LAB 09:32
PROVIDERS: Internal Medicine Nephrology
DX: N20.0 Calculus of kidney (principal); I10 Essential (primary) hypertension; E55.9 Vitamin D deficiency, unspecified; R80.9 Proteinuria, unspecified

== ENCOUNTER → 2019-11-02 | Outpatient (CLI) | payer OTHER ==
[2019-11-02 11:28] LABS: BILIRUBIN NEGATIVE (NEGATIVE); BLOOD NEGATIVE (NEGATIVE); CLARITY CLEAR (CLEAR); COLOR YELLOW (YELLOW); GLUCOSE NEGATIVE (NEGATIVE); KETONE NEGATIVE (NEGATIVE); NITRITE NEGATIVE (NEGATIVE); SPECIFIC GRAVITY 1.005 (1.005-1.030); UROBILINOGEN 0.2 E.U./dl (0.2-1.0)
[2019-11-02 11:29] LABS: LEUKO ESTERASE TRACE (NEGATIVE)
== END | disposition home or self-care (01) ==
LOC: LAB 10:09
PROVIDERS: Internal Medicine
DX: N39.0 Urinary tract infection, site not specified (principal); E25.9 Adrenogenital disorder, unspecified; Z86.19 Personal history of other infectious and parasitic diseases

== ENCOUNTER → 2019-12-20 | Outpatient (CLI) | payer OTHER ==
[2019-12-20 09:06] LABS: BILIRUBIN NEGATIVE (NEGATIVE); BLOOD TRACE-INTACT (NEGATIVE); CLARITY CLOUDY (CLEAR); COLOR YELLOW (YELLOW); GLUCOSE NEGATIVE (NEGATIVE); KETONE NEGATIVE (NEGATIVE); PH 7.5 (5.0-9.0); SPECIFIC GRAVITY 1.015 (1.005-1.030); UROBILINOGEN 0.2 E.U./dl (0.2-1.0)
[2019-12-20 09:07] LABS: BACTERIA 4+; LEUKO ESTERASE 3+ (NEGATIVE); MUCOUS 1+; NITRITE POSITIVE (NEGATIVE); RBC 51-100 rbc/hpf (0-2); WBC 51-100 wbc/hpf (0-5)
== END | disposition home or self-care (01) ==
LOC: LAB 08:39
PROVIDERS: Internal Medicine
DX: N39.0 Urinary tract infection, site not specified (principal); E25.9 Adrenogenital disorder, unspecified; Z86.19 Personal history of other infectious and parasitic diseases

== ENCOUNTER → 2019-12-24 | Outpatient (CLI) | payer OTHER ==
[2019-12-24 14:31] LABS: BUN 16 mg/dl (7-24); CHLORIDE 109 mmol/L (98-107); CREATININE 1.09 mg/dL (0.70-1.30); POTASSIUM 4.9 mmol/L (3.5-5.1); SODIUM 142 mmol/L (136-145)
== END | disposition home or self-care (01) ==
LOC: LAB 13:43
PROVIDERS: Internal Medicine
DX: E78.5 Hyperlipidemia, unspecified (principal); N18.9 Chronic kidney disease, unspecified

== ENCOUNTER → 2020-02-06 | Outpatient (CLI) | payer OTHER ==
[2020-02-06 10:21] LABS: BASO % 0.6 % (0.0-1.0); EOS # 0.2 10*3/uL (0.0-0.4); EOS % 2.3 % (1.0-4.0); HEMATOCRIT 41.9 % (42.0-52.0); LYMPH # 1.1 10*3/uL (1.3-4.4); LYMPH % 17.2 % (27.0-41.0); MEAN CELL VOLUME 114.8 fl (80.0-94.0); MEAN CORPUSCULAR HGB 36.2 pg (27.0-31.0); MEAN CORPUSCULAR HGB CONC 31.5 g/dl (33.0-37.0); MEAN PLATELET VOLUME 8.7 fl (9.6-12.3); MONO # 0.5 10*3/uL (0.1-1.0); MONO % 8.1 % (3.0-9.0); NEUT # 4.7 10*3/uL (2.3-7.9); NEUT % 71.6 % (47.0-73.0); PLATELET COUNT AUTOMATED 199 10*3/uL (130-400); RED BLOOD COUNT 3.65 10*6/uL (4.50-5.90); RED CELL DISTRI WIDTH 14.7 % (0-14.5); WHITE BLOOD COUNT 6.6 10*3/uL (4.8-10.8)
[2020-02-06 10:50] LABS: ALBUMIN 3.6 gm/dl (3.1-4.5); ALKALINE PHOSPHATASE 105 U/L (45-117); BILIRUBIN, DIRECT 0.3 mg/dL (0.0-0.2); BUN 18 mg/dl (7-24); CHLORIDE 109 mmol/L (98-107); CHOLESTEROL 180 mg/dL (<200); CPK 161 U/L (39-308); CREATININE 1.19 mg/dL (0.70-1.30); HDL CHOLESTEROL 85 mg/dl (40-60); LDL CHOLESTEROL 80 mg/dL (9-159); POTASSIUM 4.4 mmol/L (3.5-5.1); SGOT/AST 22 IU/L (3-35); SGPT/ALT 30 U/L (12-78); SODIUM 140 mmol/L (136-145); TOTAL PROTEIN 6.7 gm/dL (6.4-8.2); TRIGLYCERIDES 77 mg/dl (<150); VLDL CHOLESTEROL 15 mg/dL (6-40)
[2020-02-06 10:51] LABS: BASOPHILS 1 % (0-1); SCHISTOCYTES FEW; TOTAL CELLS COUNTED 100 #CELLS
[2020-02-06 10:52] LABS: PLATELET SUFFICIENCY NORMAL (NORMAL)
[2020-02-06 10:55] LABS: THYROID STIM HORMONE (HS) 0.534 uIU/ml (0.358-4.75)
[2020-02-07 08:11] LABS: IMMUNOGLOBULIN G, QNT 673 mg/dL (603-1613); IMMUNOGLOBULIN M, QNT 66 mg/dL (15-143)
[2020-03-04 16:56] LABS: ACHR BLOCKING AB SEE REFERENCE REPORT; ACHR MODULATING AB SEE REFERENCE REPORT; STRIATIONAL ANTIBODIES SEE REFERENCE REPORT
== END | disposition home or self-care (01) ==
LOC: LAB 09:32
PROVIDERS: Psychiatry & Neurology Neurology
DX: I48.0 Paroxysmal atrial fibrillation (principal); I10 Essential (primary) hypertension; E87.6 Hypokalemia; M79.2 Neuralgia and neuritis, unspecified; H53.2 Diplopia; M25.50 Pain in unspecified joint; E55.9 Vitamin D deficiency, unspecified; Z79.899 Other long term (current) drug therapy

== ENCOUNTER → 2020-02-10 | Outpatient (CLI) | payer OTHER ==
[2020-02-10 14:03] LABS: HEMATOCRIT 46.5 % (42.0-52.0); MEAN CELL VOLUME 114.3 fl (80.0-94.0); MEAN CORPUSCULAR HGB 35.6 pg (27.0-31.0); MEAN CORPUSCULAR HGB CONC 31.2 g/dl (33.0-37.0); MEAN PLATELET VOLUME 8.9 fl (9.6-12.3); PLATELET COUNT AUTOMATED 274 10*3/uL (130-400); RED BLOOD COUNT 4.07 10*6/uL (4.50-5.90); RED CELL DISTRI WIDTH 14.7 % (0-14.5); WHITE BLOOD COUNT 7.7 10*3/uL (4.8-10.8)
[2020-02-10 14:18] LABS: BACTERIA 2+; BILIRUBIN NEGATIVE (NEGATIVE); BLOOD TRACE-INTACT (NEGATIVE); CLARITY CLOUDY (CLEAR); COLOR YELLOW (YELLOW); EPITHELIAL CELLS 16-20; GLUCOSE 2+ (NEGATIVE); KETONE NEGATIVE (NEGATIVE); LEUKO ESTERASE 3+ (NEGATIVE); NITRITE POSITIVE (NEGATIVE); PH 7.5 (5.0-9.0); RBC 0-2 rbc/hpf (0-2); SPECIFIC GRAVITY 1.015 (1.005-1.030); UROBILINOGEN < 0.2 E.U./dl (0.2-1.0); WBC 21-30 wbc/hpf (0-5)
[2020-02-10 14:28] LABS: BUN 16 mg/dl (7-24); CHLORIDE 108 mmol/L (98-107); CREATININE 1.26 mg/dL (0.70-1.30); POTASSIUM 4.3 mmol/L (3.5-5.1); SODIUM 140 mmol/L (136-145)
[2020-02-10 14:29] LABS: BASOPHILS 1 % (0-1); BURR CELLS FEW; PLATELET SUFFICIENCY NORMAL (NORMAL); POLYCHROMASIA SLIGHT; TOTAL CELLS COUNTED 100 #CELLS
[2020-02-10 17:07] LABS: PTH INTACT 80.2 pg/mL (18.5-88.0); VITAMIN D, 25-HYDROXY 78.4 ng/mL (30-100)
[2020-02-11 10:07] LABS: CREATININE,URINE 70.4 mg/dL (Not Estab.)
== END | disposition home or self-care (01) ==
LOC: LAB 13:14
PROVIDERS: Internal Medicine Nephrology
DX: E55.9 Vitamin D deficiency, unspecified (principal); R80.9 Proteinuria, unspecified; I10 Essential (primary) hypertension; N20.0 Calculus of kidney

== ENCOUNTER → 2020-02-27 | Outpatient (CLI) | payer OTHER ==
[2020-02-27 09:50] LABS: CREATININE 1.44 mg/dL (0.70-1.30); POTASSIUM 4.4 mmol/L (3.5-5.1)
== END | disposition home or self-care (01) ==
LOC: LAB 08:22
PROVIDERS: Internal Medicine Nephrology
DX: N17.9 Acute kidney failure, unspecified (principal); N18.9 Chronic kidney disease, unspecified

== ENCOUNTER → 2020-03-18 | Outpatient (CLI) | payer OTHER ==
[2020-03-18 13:46] LABS: MEAN CELL VOLUME 115.7 fl (80.0-94.0); MEAN CORPUSCULAR HGB 36.4 pg (27.0-31.0); MEAN CORPUSCULAR HGB CONC 31.4 g/dl (33.0-37.0); MEAN PLATELET VOLUME 8.2 fl (9.6-12.3); PLATELET COUNT AUTOMATED 182 10*3/uL (130-400); RED BLOOD COUNT 3.63 10*6/uL (4.50-5.90); RED CELL DISTRI WIDTH 14.1 % (0-14.5); WHITE BLOOD COUNT 16.4 10*3/uL (4.8-10.8)
[2020-03-18 14:08] LABS: PLATELET SUFFICIENCY NORMAL (NORMAL); TOTAL CELLS COUNTED 100 #CELLS
[2020-03-18 14:15] LABS: ALBUMIN 3.6 gm/dl (3.1-4.5); CREATININE 1.44 mg/dL (0.70-1.30); POTASSIUM 4.4 mmol/L (3.5-5.1); TOTAL PROTEIN 6.6 gm/dL (6.4-8.2)
== END | disposition home or self-care (01) ==
LOC: LAB 13:26
PROVIDERS: Urology
DX: D40.0 Neoplasm of uncertain behavior of prostate (principal); R53.83 Other fatigue; N18.9 Chronic kidney disease, unspecified

== ENCOUNTER → 2020-05-12 | Outpatient (CLI) | payer OTHER ==
[2020-05-12 09:47] LABS: HEMATOCRIT 42.7 % (42.0-52.0); MEAN CELL VOLUME 117.6 fl (80.0-94.0); MEAN CORPUSCULAR HGB 36.1 pg (27.0-31.0); MEAN CORPUSCULAR HGB CONC 30.7 g/dl (33.0-37.0); MEAN PLATELET VOLUME 8.6 fl (9.6-12.3); PLATELET COUNT AUTOMATED 232 10*3/uL (130-400); RED BLOOD COUNT 3.63 10*6/uL (4.50-5.90); RED CELL DISTRI WIDTH 15.6 % (0-14.5); WHITE BLOOD COUNT 9.1 10*3/uL (4.8-10.8)
[2020-05-12 09:55] LABS: BILIRUBIN Negative (Negative); BLOOD Trace-Intact (Negative); CLARITY Clear (Clear); COLOR Dark Yellow (Yellow); GLUCOSE Negative (Negative); KETONE Negative (Negative); LEUKO ESTERASE 2+ (Negative); NITRITE Positive (Negative); PH 7.5 (4.5-8.0); SPECIFIC GRAVITY <= 1.005 (1.001-1.030)
[2020-05-12 10:13] LABS: BURR CELLS FEW; PLATELET SUFFICIENCY NORMAL (NORMAL); POLYCHROMASIA SLIGHT; ROULEAUX SLIGHT; SCHISTOCYTES FEW; TOTAL CELLS COUNTED 100 #CELLS
[2020-05-12 10:15] LABS: BUN 16 mg/dl (7-24); CHLORIDE 106 mmol/L (98-107); POTASSIUM 4.8 mmol/L (3.5-5.1); SODIUM 141 mmol/L (136-145)
[2020-05-12 10:20] LABS: CHOLESTEROL 202 mg/dL (<200); CREATININE 1.11 mg/dL (0.70-1.30); HDL CHOLESTEROL 98 mg/dl (40-60); LDL CHOLESTEROL 85 mg/dL (9-159); PTH INTACT 102.2 pg/mL (18.5-88.0); TRIGLYCERIDES 96 mg/dl (<150); URIC ACID 4.4 mg/dL (3.5-7.2); VITAMIN D, 25-HYDROXY 73.7 ng/mL (30-100); VLDL CHOLESTEROL 19 mg/dL (6-40)
[2020-05-12 10:55] LABS: BACTERIA 2+; WBC 51-100 wbc/hpf (0-5)
[2020-05-13 10:07] LABS: CREATININE,URINE 7.8 mg/dL (Not Estab.)
== END | disposition home or self-care (01) ==
LOC: LAB 08:29
PROVIDERS: ATTEND Internal Medicine Nephrology
DX: I12.9 Hypertensive chronic kidney disease with stage 1 through stage 4 chronic kidney disease, or unspecified chronic kidney disease (principal); E55.9 Vitamin D deficiency, unspecified; N20.0 Calculus of kidney

== ENCOUNTER → 2020-05-18 | Outpatient (CLI) | payer OTHER ==
[2020-05-18 09:41] LABS: HEMATOCRIT 41.1 % (42.0-52.0); MEAN CELL VOLUME 117.1 fl (80.0-94.0); MEAN CORPUSCULAR HGB 35.9 pg (27.0-31.0); MEAN CORPUSCULAR HGB CONC 30.7 g/dl (33.0-37.0); MEAN PLATELET VOLUME 8.3 fl (9.6-12.3); PLATELET COUNT AUTOMATED 169 10*3/uL (130-400); RED BLOOD COUNT 3.51 10*6/uL (4.50-5.90); RED CELL DISTRI WIDTH 15.4 % (0-14.5); WHITE BLOOD COUNT 5.5 10*3/uL (4.8-10.8)
[2020-05-18 10:09] LABS: TOTAL CELLS COUNTED 100 #CELLS
[2020-05-18 10:10] LABS: BURR CELLS FEW; PLATELET SUFFICIENCY NORMAL (NORMAL); ROULEAUX SLIGHT
[2020-05-18 10:12] LABS: ALBUMIN 3.7 gm/dl (3.1-4.5); BUN 13 mg/dl (7-24); CHLORIDE 105 mmol/L (98-107); CHOLESTEROL 192 mg/dL (<200); CREATININE 1.06 mg/dL (0.70-1.30); POTASSIUM 4.2 mmol/L (3.5-5.1); SGOT/AST 24 IU/L (3-35); SGPT/ALT 37 U/L (12-78); SODIUM 138 mmol/L (136-145); TRIGLYCERIDES 68 mg/dl (<150); VLDL CHOLESTEROL 14 mg/dL (6-40)
[2020-05-18 10:28] LABS: ALKALINE PHOSPHATASE 66 U/L (45-117); HDL CHOLESTEROL 112 mg/dl (40-60); LDL CHOLESTEROL 66 mg/dL (9-159); TOTAL PROTEIN 6.5 gm/dL (6.4-8.2)
== END | disposition home or self-care (01) ==
LOC: LAB 09:15
PROVIDERS: ATTEND Internal Medicine
DX: C61 Malignant neoplasm of prostate (principal); I48.0 Paroxysmal atrial fibrillation; M51.9 Unspecified thoracic, thoracolumbar and lumbosacral intervertebral disc disorder; I50.9 Heart failure, unspecified; J44.9 Chronic obstructive pulmonary disease, unspecified; E55.9 Vitamin D deficiency, unspecified; R53.83 Other fatigue; Z79.899 Other long term (current) drug therapy

== ENCOUNTER → 2020-05-27 | Outpatient (CLI) | payer OTHER ==
[2020-05-27 16:07] LABS: BILIRUBIN Negative (Negative); BLOOD 1+ (Negative); CLARITY Cloudy (Clear); COLOR Dark Yellow (Yellow); GLUCOSE 1+ (Negative); KETONE Negative (Negative); LEUKO ESTERASE 3+ (Negative); NITRITE Positive (Negative); PH 6.5 (4.5-8.0)
[2020-05-27 16:43] LABS: BACTERIA 2+; WBC 21-30 wbc/hpf (0-5)
== END | disposition home or self-care (01) ==
LOC: LAB 15:35
PROVIDERS: ATTEND Urology
DX: N39.0 Urinary tract infection, site not specified (principal)

== ENCOUNTER → 2020-06-19 | Outpatient (CLI) | payer OTHER ==
[2020-06-19 15:20] LABS: HEMATOCRIT 35.8 % (42.0-52.0); MEAN CELL VOLUME 113.7 fl (80.0-94.0); MEAN CORPUSCULAR HGB 35.2 pg (27.0-31.0); MEAN PLATELET VOLUME 8.4 fl (9.6-12.3); PLATELET COUNT AUTOMATED 217 10*3/uL (130-400); RED BLOOD COUNT 3.15 10*6/uL (4.50-5.90); RED CELL DISTRI WIDTH 14.2 % (0-14.5); WHITE BLOOD COUNT 9.4 10*3/uL (4.8-10.8)
[2020-06-19 15:47] LABS: PLATELET SUFFICIENCY NORMAL (NORMAL); SCHISTOCYTES FEW; SPHEROCYTES FEW; TOTAL CELLS COUNTED 100 #CELLS
[2020-06-19 15:51] LABS: ALBUMIN 3.9 gm/dl (3.1-4.5); CREATININE 1.57 mg/dL (0.70-1.30); POTASSIUM 4.2 mmol/L (3.5-5.1); TOTAL PROTEIN 6.7 gm/dL (6.4-8.2)
== END | disposition home or self-care (01) ==
LOC: LAB 15:06
PROVIDERS: ATTEND Urology
DX: D40.0 Neoplasm of uncertain behavior of prostate (principal); R53.83 Other fatigue

== ENCOUNTER → 2020-06-24 | Outpatient (CLI) | payer OTHER ==
[2020-06-24 16:26] LABS: BILIRUBIN Negative (Negative); BLOOD Trace-Lysed (Negative); CLARITY Clear (Clear); COLOR Yellow (Yellow); GLUCOSE Negative (Negative); KETONE Negative (Negative); LEUKO ESTERASE 2+ (Negative); NITRITE Positive (Negative); SPECIFIC GRAVITY 1.015 (1.001-1.030)
[2020-06-24 17:00] LABS: BACTERIA 1+
== END | disposition home or self-care (01) ==
LOC: LAB 14:29
PROVIDERS: ATTEND Urology
DX: N39.0 Urinary tract infection, site not specified (principal)

== ENCOUNTER → 2020-09-30 | Outpatient (CLI) | payer OTHER ==
[2020-09-30 12:11] LABS: BASO # 0.1 10*3/uL (0.0-0.1); BASO % 0.9 % (0.0-1.0); EOS # 0.1 10*3/uL (0.0-0.4); EOS % 1.4 % (1.0-4.0); HEMATOCRIT 41.7 % (42.0-52.0); LYMPH # 1.7 10*3/uL (1.3-4.4); LYMPH % 28.1 % (27.0-41.0); MEAN CELL VOLUME 107.5 fl (80.0-94.0); MEAN CORPUSCULAR HGB 32.7 pg (27.0-31.0); MEAN CORPUSCULAR HGB CONC 30.5 g/dl (33.0-37.0); MEAN PLATELET VOLUME 8.6 fl (9.6-12.3); MONO # 0.5 10*3/uL (0.1-1.0); MONO % 8.7 % (3.0-9.0); NEUT # 3.6 10*3/uL (2.3-7.9); NEUT % 60.6 % (47.0-73.0); PLATELET COUNT AUTOMATED 240 10*3/uL (130-400); RED BLOOD COUNT 3.88 10*6/uL (4.50-5.90); RED CELL DISTRI WIDTH 14.4 % (0-14.5); WHITE BLOOD COUNT 5.9 10*3/uL (4.8-10.8)
[2020-09-30 12:50] LABS: ALBUMIN 4.2 gm/dl (3.1-4.5); CREATININE 1.5 mg/dL (0.70-1.30); POTASSIUM 4.2 mmol/L (3.5-5.1)
[2020-09-30 12:58] LABS: THYROID STIM HORMONE (HS) 1.35 uIU/ml (0.358-4.75); TOTAL PROTEIN 7.3 gm/dL (6.4-8.2)
[2020-09-30 13:07] LABS: VITAMIN D, 25-HYDROXY 36.8 ng/mL (30-100)
[2020-09-30 13:08] LABS: FERRITIN 73.5 ng/mL (22.0-322.0)
== END | disposition home or self-care (01) ==
LOC: LAB 11:47
PROVIDERS: ATTEND Internal Medicine
DX: I12.9 Hypertensive chronic kidney disease with stage 1 through stage 4 chronic kidney disease, or unspecified chronic kidney disease (principal); C61 Malignant neoplasm of prostate; N18.30 Chronic kidney disease, stage 3 unspecified; I48.0 Paroxysmal atrial fibrillation; E53.8 Deficiency of other specified B group vitamins; J44.9 Chronic obstructive pulmonary disease, unspecified; Z79.899 Other long term (current) drug therapy

== ENCOUNTER → 2020-10-17 | Outpatient (CLI) | payer OTHER ==
[2020-10-17 15:03] LABS: BILIRUBIN Negative (Negative); BLOOD Trace-Intact (Negative); CLARITY Cloudy (Clear); COLOR Yellow (Yellow); GLUCOSE Negative (Negative); KETONE Negative (Negative); LEUKO ESTERASE 3+ (Negative); NITRITE Positive (Negative)
[2020-10-17 15:08] LABS: BACTERIA 4+; EPITHELIAL CELLS 0-2; RBC 0-2 rbc/hpf (0-2); WBC TNTC wbc/hpf (0-5)
== END | disposition home or self-care (01) ==
LOC: LAB 14:30
PROVIDERS: ATTEND Urology
DX: N39.0 Urinary tract infection, site not specified (principal)

== ENCOUNTER → 2020-12-28 | Outpatient (CLI) | payer OTHER ==
[2020-12-28 09:04] LABS: BASO # 0.1 10*3/uL (0.0-0.1); BASO % 1.2 % (0.0-1.0); EOS # 0.1 10*3/uL (0.0-0.4); EOS % 1.1 % (1.0-4.0); HEMATOCRIT 40.1 % (42.0-52.0); LYMPH # 1.2 10*3/uL (1.3-4.4); LYMPH % 21.4 % (27.0-41.0); MEAN CELL VOLUME 105.2 fl (80.0-94.0); MEAN CORPUSCULAR HGB CONC 30.4 g/dl (33.0-37.0); MEAN PLATELET VOLUME 7.9 fl (9.6-12.3); MONO # 0.5 10*3/uL (0.1-1.0); MONO % 8.4 % (3.0-9.0); NEUT # 3.9 10*3/uL (2.3-7.9); NEUT % 67.7 % (47.0-73.0); PLATELET COUNT AUTOMATED 187 10*3/uL (130-400); RED BLOOD COUNT 3.81 10*6/uL (4.50-5.90); RED CELL DISTRI WIDTH 15.9 % (0-14.5); WHITE BLOOD COUNT 5.7 10*3/uL (4.8-10.8)
[2020-12-28 09:29] LABS: ALBUMIN 3.5 gm/dl (3.1-4.5); CREATININE 1.48 mg/dL (0.70-1.30); POTASSIUM 3.8 mmol/L (3.5-5.1); TOTAL PROTEIN 6.5 gm/dL (6.4-8.2)
== END | disposition home or self-care (01) ==
LOC: LAB 08:46
PROVIDERS: ATTEND Urology
DX: Z12.5 Encounter for screening for malignant neoplasm of prostate (principal); D40.0 Neoplasm of uncertain behavior of prostate; R53.83 Other fatigue

== ENCOUNTER 2021-01-24 11:47 | Emergency (ER) | payer OTHER ==
[~2021-01-24] VITALS: Ht 190.5 cm; Wt 98.4 kg
== END 2021-01-24 12:52 | disposition home or self-care (01) ==
LOC: ED 11:47
DX: S61.255A Open bite of left ring finger without damage to nail, initial encounter (principal); W61.01XA Bitten by parrot, initial encounter; Y93.89 Activity, other specified; Y92.89 Other specified places as the place of occurrence of the external cause; Y99.8 Other external cause status

== ENCOUNTER → 2021-02-25 | Outpatient (CLI) | payer OTHER ==
[~2021-02-25] MED LIST changes: +DOXYCYCLINE100 M3 PO
== END | disposition home or self-care (01) ==
LOC: LAB 15:56
PROVIDERS: ATTEND Urology
DX: N39.0 Urinary tract infection, site not specified (principal)

== ENCOUNTER → 2021-04-15 | Outpatient (CLI) | payer OTHER ==
[2021-04-15 12:15] LABS: HEMATOCRIT 42.4 % (42.0-52.0); MEAN CELL VOLUME 109.3 fl (80.0-94.0); MEAN CORPUSCULAR HGB 34.3 pg (27.0-31.0); MEAN CORPUSCULAR HGB CONC 31.4 g/dl (33.0-37.0); MEAN PLATELET VOLUME 8.6 fl (9.6-12.3); PLATELET COUNT AUTOMATED 224 10*3/uL (130-400); RED BLOOD COUNT 3.88 10*6/uL (4.50-5.90); RED CELL DISTRI WIDTH 13.6 % (0-14.5); WHITE BLOOD COUNT 7.9 10*3/uL (4.8-10.8)
[2021-04-15 12:46] LABS: ALBUMIN 4.2 gm/dl (3.1-4.5); CREATININE 1.42 mg/dL (0.70-1.30); POTASSIUM 4.5 mmol/L (3.5-5.1); TOTAL PROTEIN 7.8 gm/dL (6.4-8.2)
[2021-04-15 12:50] LABS: BASOPHILS 3 % (0-1); TOTAL CELLS COUNTED 100 #CELLS
[2021-04-15 12:51] LABS: PLATELET SUFFICIENCY NORMAL (NORMAL)
== END | disposition home or self-care (01) ==
LOC: LAB 12:01
PROVIDERS: ATTEND Urology
DX: I10 Essential (primary) hypertension (principal); R53.83 Other fatigue

== ENCOUNTER → 2021-08-09 | Outpatient (CLI) | payer OTHER ==
[2021-08-09 12:23] LABS: HEMATOCRIT 39.2 % (42.0-52.0); MEAN CORPUSCULAR HGB 35.5 pg (27.0-31.0); MEAN CORPUSCULAR HGB CONC 30.9 g/dl (33.0-37.0); MEAN PLATELET VOLUME 8.2 fl (9.6-12.3); PLATELET COUNT AUTOMATED 182 10*3/uL (130-400); RED BLOOD COUNT 3.41 10*6/uL (4.50-5.90); RED CELL DISTRI WIDTH 17.2 % (0-14.5)
[2021-08-09 12:44] LABS: ATYPICAL LYMPHS 1 % (0-0); BASOPHILS 1 % (0-1); PLATELET SUFFICIENCY NORMAL (NORMAL); POLYCHROMASIA SLIGHT; TOTAL CELLS COUNTED 100 #CELLS
[2021-08-09 13:17] LABS: ALBUMIN 3.9 gm/dl (3.1-4.5); CREATININE 1.46 mg/dL (0.70-1.30); TOTAL PROTEIN 7.3 gm/dL (6.4-8.2)
== END | disposition home or self-care (01) ==
LOC: LAB 12:04
PROVIDERS: ATTEND Urology
DX: C61 Malignant neoplasm of prostate (principal); R53.83 Other fatigue

== ENCOUNTER 2021-08-17 18:13 | Emergency (ER) | payer OTHER ==
[~2021-08-17] VITALS: Ht 190.5 cm; Wt 93.9 kg
[2021-08-17 19:44] LABS: HEMATOCRIT 41.9 % (42.0-52.0); MEAN CELL VOLUME 116.7 fl (80.0-94.0); MEAN CORPUSCULAR HGB 36.8 pg (27.0-31.0); MEAN CORPUSCULAR HGB CONC 31.5 g/dl (33.0-37.0); MEAN PLATELET VOLUME 8.4 fl (9.6-12.3); PLATELET COUNT AUTOMATED 216 10*3/uL (130-400); RED BLOOD COUNT 3.59 10*6/uL (4.50-5.90); RED CELL DISTRI WIDTH 16.4 % (0-14.5)
[2021-08-17 20:01] LABS: ATYPICAL LYMPHS 2 % (0-0); BASOPHILS 2 % (0-1); PLATELET SUFFICIENCY NORMAL (NORMAL); TOTAL CELLS COUNTED 100 #CELLS
[2021-08-17 20:02] LABS: BURR CELLS FEW
[2021-08-17 20:40] LABS: ALBUMIN 4.2 gm/dl (3.1-4.5); ALKALINE PHOSPHATASE 122 U/L (45-117); BUN 22 mg/dl (7-24); CHLORIDE 109 mmol/L (98-107); CREATININE 1.32 mg/dL (0.70-1.30); POTASSIUM 4.5 mmol/L (3.5-5.1); SGOT/AST 28 IU/L (3-35); SGPT/ALT 39 U/L (12-78); SODIUM 137 mmol/L (136-145); TOTAL PROTEIN 7.6 gm/dL (6.4-8.2)
[2021-08-17] MEDS ORDERED: CLINDAMYCIN HC300 MG PO (21:29)
== END 2021-08-17 21:30 | disposition home or self-care (01) ==
LOC: ED 18:13
PROVIDERS: Physician Assistant
DX: M79.672 Pain in left foot (principal); Z48.00 Encounter for change or removal of nonsurgical wound dressing; Z88.0 Allergy status to penicillin; Z88.6 Allergy status to analgesic agent; Z88.1 Allergy status to other antibiotic agents; Z79.899 Other long term (current) drug therapy; Z87.891 Personal history of nicotine dependence

== ENCOUNTER → 2021-09-01 | Outpatient (CLI) | payer OTHER | LOC: WOUNDCARE 02:07 | PROVIDERS: ATTEND Nurse Practitioner Family | DX: L89.892 Pressure ulcer of other site, stage 2 (principal); L84 Corns and callosities; N18.30 Chronic kidney disease, stage 3 unspecified; M10.9 Gout, unspecified; Z85.46 Personal history of malignant neoplasm of prostate; Z98.890 Other specified postprocedural states; Z95.0 Presence of cardiac pacemaker ==

== ENCOUNTER → 2021-09-08 | Outpatient (CLI) | payer OTHER | LOC: WOUNDCARE 01:08 | PROVIDERS: ATTEND Nurse Practitioner Family | DX: L89.892 Pressure ulcer of other site, stage 2 (principal); L84 Corns and callosities; N18.30 Chronic kidney disease, stage 3 unspecified; M10.9 Gout, unspecified; Z85.46 Personal history of malignant neoplasm of prostate; Z98.890 Other specified postprocedural states; Z95.0 Presence of cardiac pacemaker; Z79.899 Other long term (current) drug therapy; Z79.82 Long term (current) use of aspirin ==

== ENCOUNTER → 2021-09-15 | Outpatient (CLI) | payer OTHER | LOC: WOUNDCARE 01:09 | PROVIDERS: ATTEND Nurse Practitioner Family | DX: L89.892 Pressure ulcer of other site, stage 2 (principal); L97.521 Non-pressure chronic ulcer of other part of left foot limited to breakdown of skin; S90.424A Blister (nonthermal), right lesser toe(s), initial encounter; J44.9 Chronic obstructive pulmonary disease, unspecified; L84 Corns and callosities; N18.30 Chronic kidney disease, stage 3 unspecified; M10.9 Gout, unspecified; Z85.46 Personal history of malignant neoplasm of prostate; Z98.890 Other specified postprocedural states; Z95.0 Presence of cardiac pacemaker; X58.XXXA Exposure to other specified factors, initial encounter; Y93.89 Activity, other specified; Y92.89 Other specified places as the place of occurrence of the external cause; Y99.8 Other external cause status ==

== ENCOUNTER → 2021-09-22 | Outpatient (CLI) | payer OTHER | LOC: WOUNDCARE 00:46 | PROVIDERS: ATTEND Nurse Practitioner Family | DX: L89.892 Pressure ulcer of other site, stage 2 (principal); L97.521 Non-pressure chronic ulcer of other part of left foot limited to breakdown of skin; S90.424D Blister (nonthermal), right lesser toe(s), subsequent encounter; J44.9 Chronic obstructive pulmonary disease, unspecified; L84 Corns and callosities; N18.30 Chronic kidney disease, stage 3 unspecified; M10.9 Gout, unspecified; Z85.46 Personal history of malignant neoplasm of prostate; Z98.890 Other specified postprocedural states; Z95.0 Presence of cardiac pacemaker; X58.XXXD Exposure to other specified factors, subsequent encounter ==

== ENCOUNTER → 2021-09-29 | Outpatient (CLI) | payer OTHER | LOC: WOUNDCARE 00:44 | PROVIDERS: ATTEND Nurse Practitioner Family | DX: L89.892 Pressure ulcer of other site, stage 2 (principal); L97.521 Non-pressure chronic ulcer of other part of left foot limited to breakdown of skin; L84 Corns and callosities; S90.424D Blister (nonthermal), right lesser toe(s), subsequent encounter; J44.9 Chronic obstructive pulmonary disease, unspecified; N18.2 Chronic kidney disease, stage 2 (mild); M10.9 Gout, unspecified; Z85.46 Personal history of malignant neoplasm of prostate; Z98.890 Other specified postprocedural states; Z95.0 Presence of cardiac pacemaker; X58.XXXD Exposure to other specified factors, subsequent encounter ==

== ENCOUNTER → 2021-10-06 | Outpatient (CLI) | payer OTHER | LOC: WOUNDCARE 01:54 | PROVIDERS: ATTEND Nurse Practitioner Family | DX: L89.892 Pressure ulcer of other site, stage 2 (principal); L97.521 Non-pressure chronic ulcer of other part of left foot limited to breakdown of skin; L84 Corns and callosities; S90.424D Blister (nonthermal), right lesser toe(s), subsequent encounter; J44.9 Chronic obstructive pulmonary disease, unspecified; N18.2 Chronic kidney disease, stage 2 (mild); M10.9 Gout, unspecified; Z85.46 Personal history of malignant neoplasm of prostate; Z98.890 Other specified postprocedural states; Z95.0 Presence of cardiac pacemaker; X58.XXXD Exposure to other specified factors, subsequent encounter ==

== ENCOUNTER → 2021-10-13 | Outpatient (CLI) | payer OTHER | LOC: WOUNDCARE 00:35 | PROVIDERS: ATTEND Nurse Practitioner Family | DX: L89.892 Pressure ulcer of other site, stage 2 (principal); L97.521 Non-pressure chronic ulcer of other part of left foot limited to breakdown of skin; L84 Corns and callosities; S90.424D Blister (nonthermal), right lesser toe(s), subsequent encounter; J44.9 Chronic obstructive pulmonary disease, unspecified; N18.2 Chronic kidney disease, stage 2 (mild); M10.9 Gout, unspecified; Z85.46 Personal history of malignant neoplasm of prostate; Z98.890 Other specified postprocedural states; Z95.0 Presence of cardiac pacemaker; X58.XXXD Exposure to other specified factors, subsequent encounter ==

== ENCOUNTER → 2021-10-27 | Outpatient (CLI) | payer OTHER | LOC: WOUNDCARE 01:59 | PROVIDERS: ATTEND Nurse Practitioner Family | DX: L89.892 Pressure ulcer of other site, stage 2 (principal); L84 Corns and callosities; S90.424D Blister (nonthermal), right lesser toe(s), subsequent encounter; J44.9 Chronic obstructive pulmonary disease, unspecified; N18.2 Chronic kidney disease, stage 2 (mild); M10.9 Gout, unspecified; Z85.46 Personal history of malignant neoplasm of prostate; Z98.890 Other specified postprocedural states; Z95.0 Presence of cardiac pacemaker; X58.XXXD Exposure to other specified factors, subsequent encounter ==

== ENCOUNTER → 2021-11-05 | Outpatient (CLI) | payer OTHER | END | disposition home or self-care (01) | LOC: WOUNDCARE 03:55 | PROVIDERS: ATTEND Nurse Practitioner Family | DX: L89.892 Pressure ulcer of other site, stage 2 (principal); L97.521 Non-pressure chronic ulcer of other part of left foot limited to breakdown of skin; S90.424D Blister (nonthermal), right lesser toe(s), subsequent encounter; L84 Corns and callosities; J44.9 Chronic obstructive pulmonary disease, unspecified; M10.9 Gout, unspecified; Z85.46 Personal history of malignant neoplasm of prostate; Z95.0 Presence of cardiac pacemaker; Z98.42 Cataract extraction status, left eye; X58.XXXD Exposure to other specified factors, subsequent encounter ==

== ENCOUNTER → 2021-11-12 | Outpatient (CLI) | payer OTHER | END | disposition home or self-care (01) | LOC: WOUNDCARE 01:11 | PROVIDERS: ATTEND Nurse Practitioner Family | DX: L89.892 Pressure ulcer of other site, stage 2 (principal); L97.521 Non-pressure chronic ulcer of other part of left foot limited to breakdown of skin; S90.424D Blister (nonthermal), right lesser toe(s), subsequent encounter; L84 Corns and callosities; J44.9 Chronic obstructive pulmonary disease, unspecified; M10.9 Gout, unspecified; Z85.46 Personal history of malignant neoplasm of prostate; Z95.0 Presence of cardiac pacemaker; Z98.42 Cataract extraction status, left eye; X58.XXXD Exposure to other specified factors, subsequent encounter ==

== ENCOUNTER → 2021-11-15 | Outpatient (CLI) | payer OTHER ==
[2021-11-15 08:54] LABS: HEMATOCRIT 40.4 % (42.0-52.0); MANUAL DIFF REFLEX YES; MEAN CELL VOLUME 114.4 fl (80.0-94.0); MEAN CORPUSCULAR HGB 36.5 pg (27.0-31.0); MEAN CORPUSCULAR HGB CONC 31.9 g/dl (33.0-37.0); MEAN PLATELET VOLUME 8.1 fl (9.6-12.3); PLATELET COUNT AUTOMATED 198 10*3/uL (130-400); RED BLOOD COUNT 3.53 10*6/uL (4.50-5.90); RED CELL DISTRI WIDTH 14.6 % (0-14.5); WHITE BLOOD COUNT 5.8 10*3/uL (4.8-10.8)
[2021-11-15 09:15] LABS: BUN 26 mg/dl (7-24); CHLORIDE 107 mmol/L (98-107); POTASSIUM 4.5 mmol/L (3.5-5.1); SODIUM 139 mmol/L (136-145)
[2021-11-15 09:17] LABS: ATYPICAL LYMPHS 1 % (0-0); BASOPHILS 2 % (0-1); PLATELET SUFFICIENCY NORMAL (NORMAL); TOTAL CELLS COUNTED 100 #CELLS
[2021-11-15 09:18] LABS: OVALOCYTES FEW
[2021-11-15 09:21] LABS: ALKALINE PHOSPHATASE 104 U/L (45-117); CREATININE 1.37 mg/dL (0.70-1.30); SGOT/AST 31 IU/L (3-35); SGPT/ALT 31 U/L (12-78); TOTAL PROTEIN 7.5 gm/dL (6.4-8.2)
== END | disposition home or self-care (01) ==
LOC: LAB 08:32
PROVIDERS: ATTEND Urology
DX: R53.83 Other fatigue (principal); Z12.5 Encounter for screening for malignant neoplasm of prostate; D40.0 Neoplasm of uncertain behavior of prostate

== ENCOUNTER → 2021-11-17 | Outpatient (CLI) | payer OTHER | END | disposition home or self-care (01) | LOC: WOUNDCARE 02:01 | PROVIDERS: ATTEND Nurse Practitioner Family | DX: S61.211A Laceration without foreign body of left index finger without damage to nail, initial encounter (principal); T23.101A Burn of first degree of right hand, unspecified site, initial encounter; T31.0 Burns involving less than 10% of body surface; L89.892 Pressure ulcer of other site, stage 2; L97.521 Non-pressure chronic ulcer of other part of left foot limited to breakdown of skin; L84 Corns and callosities; J44.9 Chronic obstructive pulmonary disease, unspecified; M10.9 Gout, unspecified; Z85.46 Personal history of malignant neoplasm of prostate; Z95.0 Presence of cardiac pacemaker; Z98.42 Cataract extraction status, left eye; X08.8XXD Exposure to other specified smoke, fire and flames, subsequent encounter; W31.2XXA Contact with powered woodworking and forming machines, initial encounter; Y93.89 Activity, other specified; Y92.098 Other place in other non-institutional residence as the place of occurrence of the external cause; Y99.8 Other external cause status ==

== ENCOUNTER → 2021-11-25 | Outpatient (CLI) | payer OTHER | END | disposition home or self-care (01) | LOC: WOUNDCARE 00:29 | PROVIDERS: ATTEND Emergency Medicine | DX: L89.893 Pressure ulcer of other site, stage 3 (principal); L97.521 Non-pressure chronic ulcer of other part of left foot limited to breakdown of skin; S90.424D Blister (nonthermal), right lesser toe(s), subsequent encounter; T23.101D Burn of first degree of right hand, unspecified site, subsequent encounter; S61.201D Unspecified open wound of left index finger without damage to nail, subsequent encounter; L84 Corns and callosities; J44.9 Chronic obstructive pulmonary disease, unspecified; M10.9 Gout, unspecified; Z95.0 Presence of cardiac pacemaker; Z85.46 Personal history of malignant neoplasm of prostate; X58.XXXD Exposure to other specified factors, subsequent encounter ==

== ENCOUNTER → 2021-12-09 | Outpatient (CLI) | payer OTHER | END | disposition home or self-care (01) | LOC: WOUNDCARE 00:15 | PROVIDERS: ATTEND Nurse Practitioner Family | DX: L89.892 Pressure ulcer of other site, stage 2 (principal); L97.521 Non-pressure chronic ulcer of other part of left foot limited to breakdown of skin; S90.424D Blister (nonthermal), right lesser toe(s), subsequent encounter; T23.101D Burn of first degree of right hand, unspecified site, subsequent encounter; S61.201D Unspecified open wound of left index finger without damage to nail, subsequent encounter; J44.9 Chronic obstructive pulmonary disease, unspecified; H26.9 Unspecified cataract; Z95.0 Presence of cardiac pacemaker; Z85.46 Personal history of malignant neoplasm of prostate; X58.XXXD Exposure to other specified factors, subsequent encounter ==

== ENCOUNTER → 2021-12-31 | Outpatient (CLI) | payer OTHER | END | disposition home or self-care (01) | LOC: WOUNDCARE 02:06 | PROVIDERS: ATTEND Podiatrist Foot & Ankle Surgery | DX: L89.892 Pressure ulcer of other site, stage 2 (principal); L97.522 Non-pressure chronic ulcer of other part of left foot with fat layer exposed; S90.424D Blister (nonthermal), right lesser toe(s), subsequent encounter; S61.201D Unspecified open wound of left index finger without damage to nail, subsequent encounter; T23.101D Burn of first degree of right hand, unspecified site, subsequent encounter; T31.0 Burns involving less than 10% of body surface; L84 Corns and callosities; H26.9 Unspecified cataract; J44.9 Chronic obstructive pulmonary disease, unspecified; M10.9 Gout, unspecified; M24.575 Contracture, left foot; Z95.0 Presence of cardiac pacemaker; Z85.46 Personal history of malignant neoplasm of prostate; X58.XXXD Exposure to other specified factors, subsequent encounter; X08.8XXD Exposure to other specified smoke, fire and flames, subsequent encounter ==

== ENCOUNTER → 2022-01-25 | Outpatient (CLI) | payer OTHER | END | disposition home or self-care (01) | LOC: CT 12:55 | PROVIDERS: ATTEND Urology | DX: N20.0 Calculus of kidney (principal); M51.36 Other intervertebral disc degeneration, lumbar region; M51.34 Other intervertebral disc degeneration, thoracic region; M47.816 Spondylosis without myelopathy or radiculopathy, lumbar region ==

== ENCOUNTER → 2022-02-15 | Outpatient (CLI) | payer OTHER ==
[2022-02-15 09:28] LABS: HEMATOCRIT 40.8 % (42.0-52.0); MEAN CELL VOLUME 109.4 fl (80.0-94.0); MEAN CORPUSCULAR HGB 35.4 pg (27.0-31.0); MEAN CORPUSCULAR HGB CONC 32.4 g/dl (33.0-37.0); MEAN PLATELET VOLUME 8.6 fl (9.6-12.3); PLATELET COUNT AUTOMATED 193 10*3/uL (130-400); RED BLOOD COUNT 3.73 10*6/uL (4.50-5.90); RED CELL DISTRI WIDTH 14.6 % (0-14.5); WHITE BLOOD COUNT 4.9 10*3/uL (4.8-10.8)
[2022-02-15 09:43] LABS: MANUAL DIFF REFLEX YES
[2022-02-15 09:46] LABS: ALKALINE PHOSPHATASE 80 U/L (45-117); BUN 18 mg/dl (7-24); CHLORIDE 106 mmol/L (98-107); POTASSIUM 3.3 mmol/L (3.5-5.1); SGOT/AST 22 IU/L (3-35); SGPT/ALT 27 U/L (12-78); SODIUM 137 mmol/L (136-145); TOTAL PROTEIN 6.9 gm/dL (6.4-8.2)
[2022-02-15 10:16] LABS: ATYPICAL LYMPHS 1 % (0-0); BASOPHILS 1 % (0-1); PLATELET SUFFICIENCY NORMAL (NORMAL); TOTAL CELLS COUNTED 100 #CELLS
== END ==
LOC: LAB 09:01
PROVIDERS: ATTEND Urology
DX: D40.0 Neoplasm of uncertain behavior of prostate (principal)

== ENCOUNTER 2022-03-04 11:35 | Emergency (ER) | payer OTHER ==
[~2022-03-04] VITALS: Wt 87.5 kg
[2022-03-04] MEDS ORDERED: HYDROCODONE-AC1 EAC1 PO (18:22)
== END 2022-03-04 18:46 | disposition home or self-care (01) ==
LOC: ED 11:35
DX: M54.9 Dorsalgia, unspecified (principal); Z88.0 Allergy status to penicillin; Z88.6 Allergy status to analgesic agent; Z88.2 Allergy status to sulfonamides; Z79.899 Other long term (current) drug therapy; Z98.890 Other specified postprocedural states; Z90.49 Acquired absence of other specified parts of digestive tract; Z87.891 Personal history of nicotine dependence

== ENCOUNTER → 2022-03-08 | Outpatient (CLI) | payer OTHER ==
[~2022-03-08] MED LIST changes: +HYDROCODONE-AC1 EAC1 PO
[2022-03-08 10:31] LABS: POTASSIUM 4.7 mmol/L (3.5-5.1)
== END | disposition home or self-care (01) ==
LOC: LAB 09:25
PROVIDERS: ATTEND Urology
DX: I25.10 Atherosclerotic heart disease of native coronary artery without angina pectoris (principal); E87.6 Hypokalemia; N20.0 Calculus of kidney; M41.86 Other forms of scoliosis, lumbar region; Z90.49 Acquired absence of other specified parts of digestive tract

== ENCOUNTER → 2022-04-04 | Outpatient (CLI) | payer OTHER ==
[2022-04-04 08:58] LABS: BILIRUBIN 1+ (Negative); BLOOD Negative (Negative); CLARITY Clear (Clear); COLOR Orange (Yellow); GLUCOSE Negative (Negative); KETONE Negative (Negative); LEUKO ESTERASE 2+ (Negative); NITRITE Positive (Negative); SPECIFIC GRAVITY 1.015 (1.001-1.030)
[2022-04-04 09:03] LABS: HEMATOCRIT 44.8 % (42.0-52.0); MEAN CELL VOLUME 111.7 fl (80.0-94.0); MEAN CORPUSCULAR HGB 35.4 pg (27.0-31.0); MEAN CORPUSCULAR HGB CONC 31.7 g/dl (33.0-37.0); MEAN PLATELET VOLUME 8.7 fl (9.6-12.3); PLATELET COUNT AUTOMATED 224 10*3/uL (130-400); RED BLOOD COUNT 4.01 10*6/uL (4.50-5.90); WHITE BLOOD COUNT 6.7 10*3/uL (4.8-10.8)
[2022-04-04 09:06] LABS: BACTERIA 1+; RBC 16-20 rbc/hpf (0-2); WBC 51-100 wbc/hpf (0-5)
[2022-04-04 09:10] LABS: MANUAL DIFF REFLEX YES
[2022-04-04 09:13] LABS: BUN 22 mg/dl (7-24); CHLORIDE 108 mmol/L (98-107); CHOLESTEROL 152 mg/dL (<200); CREATININE 1.28 mg/dL (0.70-1.30); LDL CHOLESTEROL 38 mg/dL (9-159); POTASSIUM 4.5 mmol/L (3.5-5.1); SODIUM 139 mmol/L (136-145); TRIGLYCERIDES 66 mg/dl (<150)
[2022-04-04 09:37] LABS: VITAMIN D, 25-HYDROXY 36.8 ng/mL (30-100)
[2022-04-04 10:11] LABS: BURR CELLS FEW; OVALOCYTES FEW; POLYCHROMASIA SLIGHT; SCHISTOCYTES FEW; TOTAL CELLS COUNTED 100 #CELLS
[2022-04-04 10:12] LABS: PLATELET SUFFICIENCY NORMAL (NORMAL)
[2022-04-05 12:06] LABS: CREATININE,URINE 68.7 mg/dL (Not Estab.)
== END | disposition home or self-care (01) ==
LOC: LAB 08:10
PROVIDERS: ATTEND Internal Medicine Nephrology
DX: I12.9 Hypertensive chronic kidney disease with stage 1 through stage 4 chronic kidney disease, or unspecified chronic kidney disease (principal); N18.30 Chronic kidney disease, stage 3 unspecified; N20.0 Calculus of kidney; R80.9 Proteinuria, unspecified

== ENCOUNTER → 2022-04-29 | Outpatient (CLI) | payer OTHER | END | disposition home or self-care (01) | LOC: US 01:14 | PROVIDERS: ATTEND Urology | DX: N28.1 Cyst of kidney, acquired (principal); N28.89 Other specified disorders of kidney and ureter; N32.89 Other specified disorders of bladder; N20.0 Calculus of kidney; R10.9 Unspecified abdominal pain ==

== ENCOUNTER → 2022-05-30 | Outpatient (CLI) | payer OTHER ==
[2022-05-30 10:09] LABS: HEMATOCRIT 42.2 % (42.0-52.0); MEAN CELL VOLUME 115.9 fl (80.0-94.0); MEAN CORPUSCULAR HGB 36.5 pg (27.0-31.0); MEAN CORPUSCULAR HGB CONC 31.5 g/dl (33.0-37.0); PLATELET COUNT AUTOMATED 183 10*3/uL (130-400); RED BLOOD COUNT 3.64 10*6/uL (4.50-5.90); RED CELL DISTRI WIDTH 13.9 % (0-14.5); WHITE BLOOD COUNT 5.5 10*3/uL (4.8-10.8)
[2022-05-30 10:25] LABS: CREATININE 1.42 mg/dL (0.70-1.30); POTASSIUM 4.4 mmol/L (3.5-5.1); TOTAL PROTEIN 7.2 gm/dL (6.4-8.2)
[2022-05-30 10:29] LABS: MANUAL DIFF REFLEX YES
[2022-05-30 10:52] LABS: ATYPICAL LYMPHS 1 % (0-0); OVALOCYTES FEW; PLATELET SUFFICIENCY NORMAL (NORMAL); POLYCHROMASIA SLIGHT; TOTAL CELLS COUNTED 100 #CELLS; TOXIC GRANULATION SLIGHT
== END | disposition home or self-care (01) ==
LOC: LAB 09:29
PROVIDERS: ATTEND Urology
DX: D40.0 Neoplasm of uncertain behavior of prostate (principal); R53.83 Other fatigue

== ENCOUNTER 2022-06-17 14:25 | Emergency (ER) | payer OTHER ==
[~2022-06-17] VITALS: Ht 190.5 cm; Wt 90.7 kg
[2022-06-17] MEDS ORDERED: VIBRA-TAB100 MG PO (16:06)
== END 2022-06-17 16:07 | disposition home or self-care (01) ==
LOC: ED 14:25
DX: L02.512 Cutaneous abscess of left hand (principal); F17.200 Nicotine dependence, unspecified, uncomplicated; Z88.0 Allergy status to penicillin; Z88.2 Allergy status to sulfonamides; Z79.2 Long term (current) use of antibiotics; Z79.899 Other long term (current) drug therapy; Z98.890 Other specified postprocedural states

== ENCOUNTER → 2022-06-27 | Outpatient (CLI) | payer OTHER ==
[~2022-06-27] MED LIST changes: +VIBRA-TAB100 MG PO
== END | disposition home or self-care (01) ==
LOC: WOUNDCARE 01:45
PROVIDERS: ATTEND Podiatrist Foot & Ankle Surgery
DX: L89.891 Pressure ulcer of other site, stage 1 (principal); I70.235 Atherosclerosis of native arteries of right leg with ulceration of other part of foot; L97.512 Non-pressure chronic ulcer of other part of right foot with fat layer exposed; I70.212 Atherosclerosis of native arteries of extremities with intermittent claudication, left leg; L84 Corns and callosities; H26.9 Unspecified cataract; M10.9 Gout, unspecified; Z95.0 Presence of cardiac pacemaker; Z85.46 Personal history of malignant neoplasm of prostate; Z79.82 Long term (current) use of aspirin

== ENCOUNTER 2022-08-03 14:10 | Emergency (ER) | payer OTHER | END 2022-08-03 14:34 | disposition left against medical advice (07) | LOC: ED 14:10 | DX: S09.90XA Unspecified injury of head, initial encounter (principal); Z53.21 Procedure and treatment not carried out due to patient leaving prior to being seen by health care provider ==

== ENCOUNTER → 2022-08-10 | Outpatient (CLI) | payer OTHER ==
[2022-08-10 12:35] LABS: HEMATOCRIT 39.8 % (42.0-52.0); MEAN CELL VOLUME 116.4 fl (80.0-94.0); MEAN CORPUSCULAR HGB 36.3 pg (27.0-31.0); MEAN CORPUSCULAR HGB CONC 31.2 g/dl (33.0-37.0); MEAN PLATELET VOLUME 8.3 fl (9.6-12.3); PLATELET COUNT AUTOMATED 200 10*3/uL (130-400); RED BLOOD COUNT 3.42 10*6/uL (4.50-5.90); RED CELL DISTRI WIDTH 15.5 % (0-14.5); WHITE BLOOD COUNT 6.7 10*3/uL (4.8-10.8)
[2022-08-10 12:38] LABS: MANUAL DIFF REFLEX YES
[2022-08-10 12:51] LABS: POTASSIUM 4.3 mmol/L (3.4-5.1)
[2022-08-10 12:59] LABS: BASOPHILS 3 % (0-1); TOTAL CELLS COUNTED 100 #CELLS
[2022-08-10 13:01] LABS: BURR CELLS FEW
[2022-08-10 13:02] LABS: PLATELET SUFFICIENCY NORMAL (NORMAL)
[2022-08-10 13:18] LABS: BILIRUBIN 1+ (Negative); BLOOD 1+ (Negative); CLARITY Turbid (Clear); COLOR Dark Yellow (Yellow); GLUCOSE Negative (Negative); KETONE Negative (Negative); LEUKO ESTERASE 3+ (Negative); NITRITE Positive (Negative); PH 7.5 (4.5-8.0); SPECIFIC GRAVITY 1.025 (1.001-1.030)
[2022-08-10 13:53] LABS: BACTERIA 4+; EPITHELIAL CELLS 0-2; WBC TNTC wbc/hpf (0-5)
== END | disposition home or self-care (01) ==
LOC: LAB 12:09
PROVIDERS: ATTEND Urology
DX: D40.0 Neoplasm of uncertain behavior of prostate (principal); N39.0 Urinary tract infection, site not specified; R53.83 Other fatigue

== ENCOUNTER → 2022-08-30 | Outpatient (CLI) | payer OTHER ==
[2022-08-30 09:47] LABS: HEMATOCRIT 40.3 % (42.0-52.0); MEAN CELL VOLUME 115.5 fl (80.0-94.0); MEAN CORPUSCULAR HGB 36.4 pg (27.0-31.0); MEAN CORPUSCULAR HGB CONC 31.5 g/dl (33.0-37.0); MEAN PLATELET VOLUME 8.9 fl (9.6-12.3); PLATELET COUNT AUTOMATED 185 10*3/uL (130-400); RED BLOOD COUNT 3.49 10*6/uL (4.50-5.90); RED CELL DISTRI WIDTH 14.3 % (0-14.5); WHITE BLOOD COUNT 5.4 10*3/uL (4.8-10.8)
[2022-08-30 09:53] LABS: MANUAL DIFF REFLEX YES
[2022-08-30 10:15] LABS: ALKALINE PHOSPHATASE 85 U/L (46-116); BUN 17 mg/dl (9-23); CHLORIDE 103 mmol/L (98-107); CHOLESTEROL 136 mg/dL (<200); LDL CHOLESTEROL 53 mg/dL (9-159); POTASSIUM 4.6 mmol/L (3.4-5.1); SGPT/ALT 32 U/L (10-49); THYROID STIM HORMONE (HS) 1.882 uIU/ml (0.550-4.780); TOTAL PROTEIN 6.6 gm/dL (6.0-8.0); TRIGLYCERIDES 59 mg/dl (<150)
[2022-08-30 10:41] LABS: POLYCHROMASIA SLIGHT; TOTAL CELLS COUNTED 100 #CELLS
[2022-08-30 10:42] LABS: BURR CELLS FEW; PLATELET SUFFICIENCY NORMAL (NORMAL); SCHISTOCYTES FEW
== END | disposition home or self-care (01) ==
LOC: LAB 09:04
PROVIDERS: ATTEND Internal Medicine
DX: J45.909 Unspecified asthma, uncomplicated (principal); M51.9 Unspecified thoracic, thoracolumbar and lumbosacral intervertebral disc disorder; E55.9 Vitamin D deficiency, unspecified; I50.9 Heart failure, unspecified; C61 Malignant neoplasm of prostate; M54.50 Low back pain, unspecified

== ENCOUNTER 2022-09-18 16:40 | Emergency (ER) | payer OTHER ==
[~2022-09-18] VITALS: Ht 182.8 cm; Wt 86.2 kg
[~2022-09-18 16:40] MED LIST changes: +ATORVASTATIN CA10 M1 PO; +ATORVASTATIN CA40 M1 PO; +BAYER ASPIRIN C81 MG PO; +FINASTERIDE5 M1 PO; +LOPRESSOR25 MG PO; +MIDODRINE HCL10 MG PO; +MIDODRINE HCL5 M1 PO; +MIRAPEX0.5 MG PO; +ONDANSETRON4 MG SL; +PANTOPRAZOLE SO40 MG PO; +ZANAFLEX4 M1 PO
[2022-09-18 17:49] LABS: HEMATOCRIT 33.6 % (42.0-52.0); MEAN CORPUSCULAR HGB CONC 32.1 g/dl (33.0-37.0); MEAN PLATELET VOLUME 8.5 fl (9.6-12.3); PLATELET COUNT AUTOMATED 249 10*3/uL (130-400); RED CELL DISTRI WIDTH 13.6 % (0-14.5); WHITE BLOOD COUNT 6.7 10*3/uL (4.8-10.8)
[2022-09-18 17:50] LABS: MANUAL DIFF REFLEX YES
[2022-09-18 18:05] LABS: ALKALINE PHOSPHATASE 68 U/L (46-116); BUN 14 mg/dl (9-23); CHLORIDE 100 mmol/L (98-107); LIPASE 23 U/L (12-53); POTASSIUM 3.9 mmol/L (3.4-5.1); SGPT/ALT 27 U/L (10-49); TOTAL PROTEIN 5.8 gm/dL (6.0-8.0)
[2022-09-18 18:12] LABS: BASOPHILS 5 % (0-1); PLATELET SUFFICIENCY NORMAL (NORMAL); TOTAL CELLS COUNTED 100 #CELLS
[2022-09-18 18:13] LABS: OVALOCYTES FEW; POLYCHROMASIA SLIGHT
[2022-09-18 20:04] LABS: BILIRUBIN 1+ (Negative); BLOOD Negative (Negative); CLARITY Clear (Clear); GLUCOSE Negative (Negative); KETONE Negative (Negative); LEUKO ESTERASE 1+ (Negative); NITRITE Positive (Negative)
[2022-09-18 20:11] LABS: COLOR Orange (Yellow)
[2022-09-18] MEDS ORDERED: AMIODARONE HYD200 MG PO (20:25)
[2022-09-18] MEDS ORDERED: MIDODRINE HCL10 MG PO (20:26)
[2022-09-18] MEDS ORDERED: TIZANIDINE HCL4 MG PO (20:27)
[2022-09-18 20:28] LABS: BACTERIA 1+; CALCIUM OXALATE CRYSTALS 1+
== END 2022-09-18 23:14 | disposition home or self-care (01) ==
LOC: ED 16:40
PROVIDERS: Physician Assistant
DX: K59.00 Constipation, unspecified (principal); G89.18 Other acute postprocedural pain; Z88.0 Allergy status to penicillin; Z88.2 Allergy status to sulfonamides; Z88.8 Allergy status to other drugs, medicaments and biological substances; Z98.890 Other specified postprocedural states; Z87.891 Personal history of nicotine dependence; Z79.899 Other long term (current) drug therapy